=== PATIENT | female | born 1945 | race Caucasian/White ===

== ENCOUNTER 2025-09-11 12:08 | Inpatient (IN) | payer MEDICARE, SELFPAY ==
--- OUTSIDE RECORDS SUMMARY | 2025-02-03 06:00 | XMS_ITS ---
Author Organization [facility] es Address [address] [place] [address] Care Team Providers Care Loss Control Technician Name Role Phone Anjelica Borges Primary Care Provider Douglas Daniels Unavailable [phone] REASON FOR VISIT 1 month f/u Social History Sex Assigned At : Social History Observation Description Sex Assigned At Female Encounters Encounter Location Date Provider Diagnosis [facility] [address] [facility] [place] [place] [address] 2024 Douglas Daniels Plan Of Treatment No Information Progress Notes * GLENN SPANNDOB: (80 yo F)Acc No.[id number]:02/03/2025 Behavioral Health Patient: GLENN MENON :?WINSTON MolinaPDOB:1945???Age:80 Y???Sex: FemaleDate:02/03/2025Phone:[phone]:[address], [place] [id number]:Anjelica Borges Subjective: * Chief Complaints: * 1 month f/u Billing Information: * Procedure Codes: * Electronic signature of DERRICK Molina on 09/12/2025 at 01:53 PM ESTSign off status: Pending * Provider: DERRICK Block Date: 0 02/03/2025 Generated for Printing/Faxing/eTransmitting on:?09/12/2025 01:53 PM EST
--- OUTSIDE RECORDS SUMMARY | 2025-02-09 06:45 | XMS_ITS ---
Author Organization [employer] [facility] [employer] es Address [address] [place] [address] Care Team Providers Care Director Inbound Sales Name Role Phone Anjelica Borges Primary Care Provider [phone] Douglas Daniels Unavailable [phone] REASON FOR VISIT 1 month f/u R/S FROM 02/02 Social History Sex Assigned At : Social History Observation Description Sex Assigned At Female Encounters Encounter Location Date Provider Diagnosis [facility] [address] [place] [address] 2024 Douglas Daniels Plan Of Treatment No Information Progress Notes * GLENN SPANNDOB: (80 yo F)Acc No.[id number]:02/09/2025 Behavioral Health Patient: GLENN MENON :?WINSTON MolinaPDOB:1945???Age:80 Y???Sex: FemaleDate:02/09/2025Phone:[phone]:[address], [id number]:Anjelica Borges Subjective: * Chief Complaints: * 1 month f/u R/S FROM 02/02 * Electronic signature of DERRICK Molina on 09/12/2025 at 01:52 PM ESTSign off status: Pending * Provider: DERRICK Block Date: 0 02/09/2025 Generated for Printing/Faxing/eTransmitting on:?09/12/2025 01:52 PM EST
--- OUTSIDE RECORDS SUMMARY | 2025-02-10 06:30 | XMS_ITS ---
Author Organization [facility] es Address [address] [place] [address] Care Team Providers Care Voting Machine Repairer Name Role Phone Anjelica Borges Primary Care Provider [phone] Douglas Daniels Unavailable [phone] Allergies Allergen (clinical drug ingredient) Drug/Non Drug Allergy documented on EMR Reaction Allergy Type Onset Date Status sulfacetamide Sulfacetamide Unknown Drug Allergy Active REASON FOR VISIT R/S FROM 02/09 Medications Medication SIG (Take, Route, Frequency, Duration) Notes Start Date End Date Status Auvelity 45-105 MG Tablet Ex tended Release 1 tablet Orally twice a day (bid); Duration: 30 days 3ActiveSEROquel 100 MG Tablet1 tablet at bedtime Orally Once a day; Duration: 90 daysActivetraZODone HCl 50 MG Tablet1 tablet at bedtime as needed Orally Once a day; Duration: 90 days4ActivehydrOXYzine HCl 25 MG Tablet 1-2 tablets at night Oral Once a day; Duration: 30 daysmay increase to 2 tablets if needed for improved sleepActiveclonazePAM 0.5 MG Tablet1 tablet Oral twice a day (bid) as needed (prn); Duration: 30 days5ActiveLevothyroxine Sodium 150 MCG Tablet1 tablet in the morning on an empty stomach Orally Once a day ActiveamLODIPine Besylate 5 MG Tablet1 tablet Orally Once a dayActive Spironolactone 25 MG Tablet1 tablet OrallyActiveMetoprolol Succinate 25 MG Capsule ER 24 Hour Sprinkle1 capsule Orally Once a dayActivePantoprazole Sodium 20 MG Tablet Delayed Release1 tablet Orally Once a dayActive Social History Sex Assigned At : Social History Observation Description Sex Assigned At Female Social History Drug/Alcohol:Social InfoQuestionAnswerNotesAUDIT-C (Standard)Did you have a drink containing alcohol in the past year?[id number] Encounters Encounter Location Date Provider Diagnosis [facility] [address] [place] [address] 2024 Douglas Daniels Plan Of Treatment No Information Progress Notes * GLENN SPANN JDOB: 7 (80 yo F)Acc No.[id number]:02/10/2025 Behavioral Health Patient: GLENN MENON :?Douglas Daniels, FNPDOB:1945???Age:80 Y???Sex: FemaleDate:02/10/2025Phone:[phone]:[address], [facility], [id number]:Anjelica Borges Subjective: * Chief Complaints: * R /S FROM 02/09 * Medical History: Agoraphobia Depression Medical History Verified * Surgical History: No Surgical History documented.? Surgical History verified.? * Hospitalization/Major Diagno stic Procedure: [facility] Oct 2019? Hospitalization Verified.? * Family History: F ather: . M other: . 2 brother(s) , 1 sister(s) . . F amily History Verified.. * Social History: ???Drug/Alcohol:?AUDIT-C (Standard)?Did you have a drink containing alcohol in the past year??No ?Points?0 ?Interpretation?Negative ??? * Medications: T akingPantoprazole Sodium 20 MG Tablet Delayed Release 1 tablet Orally Once a day Levothyroxine Sodium 150 MCG Tablet 1 tablet in the morning on an empty stomach Orally Once a day amLODIPine Besylate 5 MG Tablet 1 tablet Orally Once a day Spironolactone 25 MG Tablet 1 tablet Orally Metoprolol Succinate 25 MG Capsule ER 24 Hour Sprinkle 1 capsule Orally Once a day Auvelity 45-105 MG Tablet Extended Release 1 tablet Orally twice a day (bid) SEROquel 100 MG Tablet 1 tablet at bedtime Orally Once a day traZODone HCl 50 MG Tablet 1 tablet at bedtime as needed Orally Once a day hydrOXYzine HCl 25 MG Tablet 1-2 tablets at night Oral Once a day , Notes to Pharmacist: may increase to 2 tablets if needed for improved sleepclonazePAM 0.5 MG Tablet 1 tablet Oral twice a day (bid) as needed (prn) Taking Pantoprazole Sodium 20 MG Tablet Delayed Release 1 tablet Orally Once a day Taking Levothyroxine Sodium 150 MCG Tablet 1 tablet in the morning on an empty stomach Orally Once a day Taking amLODIPine Besylate 5 MG Tablet 1 tablet Orally Once a day Taking Spironolactone 25 MG Tablet 1 tablet Orally Taking Metoprolol Succinate 25 MG Capsule ER 24 Hour Sprinkle 1 capsule Orally Once a day Taking Auvelity 45-105 MG Tablet Extended Release 1 tablet Orally twice a day (bid) Taking SEROquel 100 MG Tablet 1 tablet at bedtime Orally Once a day Taking traZODone HCl 50 MG Tablet 1 tablet at bedtime as needed Orally Once a day Taking hydrOXYzine HCl 25 MG Tablet 1-2 tablets at night Oral Once a day , Notes to Pharmacist: may increase to 2 tablets if needed for improved sleepTaking clonazePAM 0.5 MG Tablet 1 tablet Oral twice a day (bid) as needed (prn) * Allergies: S ulfaolivermidkallieAllergies Verified. Billing Information: * Procedure Codes: * Electronic signature of DERRICK Molina on 09/12/2025 at 01:52 PM ESTSign off status: Pending * Provider: DERRICK Block Date: 0 02/10/2025 Generated for Printing/Faxing/eTransmitting on:?09/12/2025 01:52 PM EST
--- OUTSIDE RECORDS SUMMARY | 2025-03-24 05:15 | XMS_ITS ---
Author Organization [facility] es Address [address] [place] [address] Care Team Providers Care Suit Maker Name Role Phone Anjelica Borges Primary Care Provider Douglas Daniels Unavailable [phone] REASON FOR VISIT BH F/U for med refills Social History Sex Assigned At : Social History Observation Description Sex Assigned At Female Encounters Encounter Location Date Provider Diagnosis [facility] [address] [place] [address] 2024 Douglas Daniels Plan Of Treatment No Information Progress Notes * GLENN SPANNDOB: 7 (80 yo F)Acc No.[id number]:03/24/2025 Behavioral Health Patient: GLENN MENON :?WINSTON MolinaPDOB:1945???Age:80 Y???Sex: FemaleDate:03/24/2025Phone:[phone]:[address] [facility]-[id number]:Anjelica Borges Subjective: * Chief Complaints: * B H F/U for med refills Billing Information: * Procedure Codes: * Electronic signature of DERRICK Molina on 09/12/2025 at 01:52 PM ESTSign off status: Pending * Provider: DERRICK Block Date: 0 03/24/2025 Generated for Printing/Faxing/eTransmitting on:?09/12/2025 01:52 PM EST
--- OUTSIDE RECORDS SUMMARY | 2025-04-21 03:30 | XMS_ITS ---
Author Organization [facility] Address [address] [place] [address] Care Team Providers Care Water Service Dispatcher Name Role Phone Anjelica Borges Primary Care Provider REASON FOR VISIT rachana from [facility] Social History Sex Assigned At : Social History Observation Description Sex Assigned At Female Encounters Encounter Location Date Provider Diagnosis [facility] [address] [address] 04/21/2025 Anjelica Borges Plan Of Treatment No Information Progress Notes * GLENN SPANNDOB: (80 yo F)Acc No.[id number]:04/21/2025 Behavioral Health Patient: Melany MOSS GLENN Silverman :?Anjelica Borges CNPDOB:1945???Age:80 Y ???Sex:FemaleDate:04/21/2025Phone:[phone]:[address], [place], [id number] Subjective: * Chief Complaints: * t oc from [facility] Billing Information: * Procedure Codes: * Electronic signature of CALIN Grissom on 09/12/2025 at 01:52 PM ESTSign off status: Pending * Provider: Lasha Borges CNP Date: 0 04/21/2025 Generated for Printing/Faxing/eTransmitting on:?09/12/2025 01:52 PM EST
--- OUTSIDE RECORDS SUMMARY | 2025-05-04 08:15 | XMS_ITS ---
Author Organization [employer] [facility] Address [address] [place] [address] Care Team Providers Care Chemical Checker Name Role Phone Anjelica oBrges Primary Care Provider REASON FOR VISIT rachana from [facility] Social History Sex Assigned At : Social History Observation Description Sex Assigned At Female Encounters Encounter Location Date Provider Diagnosis [facility] [address] [place] [address] 05/04/2025 Anjelica Borges Plan Of Treatment No Information Progress Notes * GLENN SPANNDOB: (80 yo F)Acc No.[id number]:05/04/2025 Behavioral Health Patient: Melany MOSS GLENN Silverman :?Anjelica Borges CNPDOB:1945???Age:80 Y ???Sex:FemaleDate:05/04/2025Phone:[phone]:[address], [address], [place], [id number] Subjective: * Chief Complaints: * T oc from [facility] Billing Information: * Procedure Codes: * Electronic signature of CALIN Grissom on 09/12/2025 at 01:53 PM ESTSign off status: Pending * Provider: Lasha Borges CNP Date: 0 05/04/2025 Generated for Printing/Faxing/eTransmitting on:?09/12/2025 01:53 PM EST
--- OUTSIDE RECORDS SUMMARY | 2025-05-19 09:00 | XMS_ITS ---
Author Organization [employer] [facility] es Address [address] [place] [address] Care Team Providers Care Dairy Science Teacher Name Role Phone Anjelica Borges Primary Care Provider REASON FOR VISIT rachana Kip Social History Sex Assigned At : Social History Observation Description Sex Assigned At Female Encounters Encounter Location Date Provider Diagnosis [facility] [address] [place] [address] 05/19/2025 Anjelica Borges Plan Of Treatment No Information Progress Notes * GLENN SPANNDOB: (80 yo F)Acc No.[id number]:05/19/2025 Behavioral Health Patient: Melany MOSS GLENN Silverman :?Anjelica Borges CNPDOB:1945???Age:80 Y ???Sex:FemaleDate:05/19/2025Phone:[phone]:[address], [address], [place], [place] Subjective: * Chief Complaints: * t oc Kip Billing Information: * Procedure Codes: * Electronic signature of CALIN Grissom on 09/12/2025 at 01:53 PM ESTSign off status: Pending * Provider: Lasha Borges CNP Date: 0 05/19/2025 Generated for Printing/Faxing/eTransmitting on:?09/12/2025 01:53 PM EST
[2025-09-11 12:09] VITALS: BP 145/83; PULSE 80; TEMP 36.9; O2SAT 98; BMI 22.5
--- NOTE | 2025-09-11 12:33 | ECG_ITS ---
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 Measurements Intervals [place] Rate: 72 P: 72 KS: 168 QRS: 43 QRSD: 128 T: 16 QT: 426 QTc: 451 Interpretive Statements 1100 Sinus rhythm 2420 RSR (QR) in lead V1/V2, consistent with right ventricular conduction delay 3434 Septal myocardial infarction, age undetermined 9150 abnormal ECG No previous ECG available for comparison Electronically Signed On 09-11-2025 17:24:22 EST by BIRD BUTLER M.D.
--- NOTE | 2025-09-11 12:39 | ED.GENADUL1 ---
HPI HPI - General Adult General Chief complaint: Abdominal Pain Stated complaint: NAUSEA VOMITING Time Seen by Provider: 09/11/25 12:27 Source: patient Mode of arrival: ambulance Limitations: no limitations History of Present Illness HPI narrative: 80-year-old female presents for nausea and vomiting. She comes in from [facility] and has a history of stage IV gastric carcinoma. She is in hospice and has DNR CCA status. [facility] was unable to control her vomiting and they sent her here. No fever or hematemesis. Related Data Home Medications ?Medication ?Instructions ?Recorded ?Confirmed acetaminophen 325 mg capsule 650 mg PO Q6H PRN pain 09/11/25 09/11/25 diazepam 5 mg tablet 5 mg PO Q6H PRN anxiety 09/11/25 09/11/25 fentanyl 75 mcg/hr transdermal 1 patch transdermal Q72H 09/11/25 09/11/25 patch folic acid 1 mg tablet 1 mg PO DAILY 09/11/25 09/11/25 hyoscyamine sulfate 0.125 mg 0.125 mg PO TID 09/11/25 09/11/25 tablet (Levsin) levothyroxine 150 mcg tablet 150 mcg PO DAILY 09/11/25 09/11/25 (Euthyrox) lidocaine 4 % topical patch 1 patch topical DAILY PRN pain 09/11/25 09/11/25 morphine 100 mg/5 mL oral 30 mg PO .q3hr PRN pain 09/11/25 09/11/25 concentrate ondansetron 4 mg disintegrating 4 mg PO TID 09/11/25 09/11/25 tablet pantoprazole 40 mg tablet,delayed 40 mg PO BID 09/11/25 09/11/25 release polyethylene glycol 3350 17 17 g PO DAILY 09/11/25 09/11/25 gram/dose oral powder (ClearLax) promethazine 12.5 mg tablet 12.5 mg PO Q8H PRN nausea and 09/11/25 09/11/25 vomiting scopolamine base 1 mg over 3 days 1 patch transdermal Q3D PRN nausea 09/11/25 09/11/25 transdermal patch (Transderm-Scop) and vomiting sucralfate 1 gram tablet (Carafate) 1 g PO BID 09/11/25 09/11/25 trazodone 50 mg tablet 50 mg PO BEDTIME 09/11/25 09/11/25 Allergies Allergy/AdvReac Type Severity Reaction Status Date / Time aspirin Allergy Unknown Unknown Verified 09/11/25 12:14 diflunisal (From Dolobid) Allergy Unknown unknown Verified 09/11/25 12:14 Penicillins Allergy Unknown Unknown Verified 09/11/25 12:14 sulfamethizole Allergy Unknown Unknown Verified 09/11/25 12:14 Review of Systems ROS Narrative A ten point review of systems is negative except as noted above. PFSH PFSH Social History Little interest or pleasure in doing things: not at all Feeling down, depressed, or hopeless: not at all Exam Narrative Exam Narrative: Nurses note and vital signs reviewed General:The patient appears thin and in no distress. She is laying on her side when I walk into the room Skin:Warm, dry, no pallor noted.There is no rash noted. Head:Normocephalic, atraumatic Eye: Normal conjunctiva, no drainage Ears, Nose, Mouth, and Throat: oral mucosa is mildly dry. Nares patent. Cardiovascular:Regular Rate and Rhythm Respiratory:Patient is in no distress, no accessory muscle use, lungs are clear to auscultation, no wheezing, rales or rhonchi Back:non-tender GI: Soft and nondistended Musculoskeletal: The patient has no evidence of calf tenderness, no pitting edema, symmetrical pulses noted bilaterally Neurological: Awake and alert Psychiatric:Cooperative Constitutional Vital Signs, click to edit/add: Last Vital Signs Temp 98.4 F 09/11/25 12:09 Pulse 80 09/11/25 12:09 Resp 18 09/11/25 12:09 BP 145/83 H 09/11/25 12:09 Pulse Ox 98 09/11/25 12:09 O2 Del Method Room Air 09/11/25 13:59 Course Vital Signs Vital signs: Vital Signs Temperature 98.4 F 09/11/25 12:09 Pulse Rate 80 09/11/25 12:09 Respiratory Rate 18 09/11/25 12:09 Blood Pressure 145/83 H 09/11/25 12:09 Pulse Oximetry 98 09/11/25 12:09 Oxygen Delivery Method Room Air 09/11/25 12:09 Temperature 98.4 F 09/11/25 12:09 Pulse Rate 80 09/11/25 12:09 Respiratory Rate 18 09/11/25 12:09 Blood Pressure 145/83 H 09/11/25 12:09 Pulse Oximetry 98 09/11/25 12:09 Oxygen Delivery Method Room Air 09/11/25 13:59 Medical Decision Making MDM Narrative Medical decision making narrative: Blood work is nonspecific. We have given her several doses of nausea medication including Zofran, Phenergan, and Reglan. She continues to be nauseous and is not willing to drink much. She does not have any abdominal tenderness or abdominal pain. She has DNRCC status and will be admitted for observation. Findings are discussed with the patient. Differential Diagnosis Differential Diagnosis: Vomiting, dehydration Lab Data Lab results reviewed: Yes I reviewed the patient's lab results Labs: Lab Results 09/11/25 09/11/25 Range/Units 12:23 17:16 WBC 13.6 H (4.0-11.0) 10^3/uL RBC 5.00 (4.20-5.40) 10^6/uL Hgb 12.2 (12.0-16.0) g/dL Hct 38.0 (36.0-48.0) % MCV 76.0 L (81.0-99.0) fL MCH 24.4 L (26.7-34.0) pg MCHC 32.1 (29.9-35.2) g/dL RDW 15.8 H (11.0-15.0) % Plt Count 345 (150-450) 10^3/uL MPV 10.7 (9.5-13.5) fL Neut % (Auto) 88.4 H (43.0-75.0) % Lymph % (Auto) 7.1 L (20.5-60.0) % [place] % (Auto) 3.7 (1.7-12.0) % Eos % (Auto) 0.0 L (0.9-7.0) % Baso % (Auto) 0.2 (0.2-2.0) % Neut # (Auto) 12.0 H (1.4-6.5) 10^3/uL Lymph # (Auto) 1.0 L (1.2-3.8) 10^3/uL [place] # (Auto) 0.5 (0.3-0.8) 10^3/uL Eos # (Auto) 0.0 (0.0-0.7) 10^3/uL Baso # (Auto) 0.0 (0.0-0.1) 10^3/uL Abs Immat Gran (auto) 0.08 H (0.00-0.03) 10^3/uL Imm/Tot Granulo (auto) 0.6 H (0.0-0.5) % Sodium 138 (136-145) mmol/L Potassium 3.1 L (3.5-5.1) mmol/L Chloride 96 L (98-107) mmol/L Carbon Dioxide 30.2 (21.0-32.0) mmol/L Anion Gap 14.9 BUN 20.0 H (7.0-18.0) mg/dL Creatinine 0.78 (0.55-1.02) mg/dL Est GFR ( Amer) >60 (>=60 mL/min/1.73m^2) Est GFR (Non-Af Amer) >60 (>=60 mL/min/1.73m^2) BUN/Creatinine Ratio 25.6 Glucose 140 H (74-106) mg/dL Calcium 10.1 (8.5-10.1) mg/dL Urine Color Yellow (YELLOW) Urine Clarity Sl cloudy (CLEAR) Urine pH 6.0 (5.0-9.0) Ur Specific [place] >=1.030 A (1.005-1.025) Urine Protein 100 A (NEG/TRACE) mg/dL Urine Glucose (UA) Negative (NEGATIVE) mg/dL Urine Ketones 40 A (NEGATIVE) mg/dL Urine Occult Blood Negative (NEGATIVE) Urine Nitrite Positive A (NEGATIVE) Urine Bilirubin Small A (NEGATIVE) Urine Urobilinogen 1.0 (0.2-1.0) EU/dL Ur Leukocyte Esterase Negative (NEGATIVE) Urine RBC 0-2 (0-2) #/HPF Urine WBC 2-5 A (NONE SEEN) #/HPF Ur Squamous Epith Cells Rare (NONE/RARE) #/LPF Urine Crystals None seen (None Seen) #/HPF Urine Bacteria Large A (NONE SEEN) #/HPF Urine Casts Seen A (NONE SEEN) #/LPF Urine Mucus Small A (NONE SEEN) Ur Culture Indicated? Yes-[facility] ECG Data Attestation: I personally reviewed and interpreted this ECG as follows: (EKG on my interpretation shows sinus rhythm with rate of 72 and no acute change) Discharge Plan Discharge Chief Complaint: Abdominal Pain Clinical Impression: Nausea & vomiting Patient Disposition: Admitted as Observation Time of Disposition Decision: 18:04 Condition: Fair
[2025-09-11] MEDS: 0.9 % SODIUM CHLORIDE 1,000 ML 1000 ML IV (12:47)
[2025-09-11 12:52] LABS: Hematocrit 38.0 % (36.0-48.0); Hemoglobin 12.2 g/dL (12.0-16.0); Immature Granulocytes Abs Auto 0.08 10^3/uL (0.00-0.03); Immature Granulocytes Pct Auto 0.6 % (0.0-0.5); Lymphocytes Absolute Auto 1.0 10^3/uL (1.2-3.8); Mean Corpuscular HGB Conc 32.1 g/dL (29.9-35.2); Mean Corpuscular Hemoglobin 24.4 pg (26.7-34.0); Mean Corpuscular Volume 76.0 fL (81.0-99.0); Platelet Count 345 10^3/uL (150-450); Red Blood Count 5.00 10^6/uL (4.20-5.40); White Blood Count 13.6 10^3/uL (4.0-11.0)
[2025-09-11 12:55] LABS: Anion Gap 14.9; Blood Urea Nitrogen 20.0 mg/dL (7.0-18.0); Calcium 10.1 mg/dL (8.5-10.1); Carbon Dioxide 30.2 mmol/L (21.0-32.0); Chloride 96 mmol/L (98-107); Estimated GFR (African America >60 (>=60 mL/min/1.73m^2); Estimated GFR (Non-African Ame >60 (>=60 mL/min/1.73m^2); Glucose 140 mg/dL (74-106); Potassium 3.1 mmol/L (3.5-5.1); Sodium 138 mmol/L (136-145)
[2025-09-11] MEDS: METOCLOPRAMIDE HCL 10 MG/2 ML VIAL IVP (13:52)
[2025-09-11] MEDS: MORPHINE SULFATE 4 MG/ML VIAL IV (13:52)
[2025-09-11 14:19] VITALS: PULSE 72
[2025-09-11] MEDS: 0.9 % SODIUM CHLORIDE 500 ML IV (15:08)
[2025-09-11] MEDS: PROMETHAZINE HCL 12.5 MG in 0.9 % SODIUM CHLORIDE 50 ML 202 MG IV (15:09)
[2025-09-11 17:37] LABS: Glucose Urine UA NEGATIVE (NEGATIVE)
[2025-09-11 17:47] LABS: Crystals Seen? None Seen #/HPF (None Seen)
[2025-09-11 17:48] LABS: Cast Seen? SEEN #/LPF (NONE SEEN); Urine Culture Indicated YES-FRMC
--- NOTE | 2025-09-11 18:15 | CT_ITS ---
The [address] [address] Patient Name: GLENN SPANN MRN: [id number] date: 1945 Sex: F Assigned Patient Location: ER Current Patient Location: .MAIN Accession/Order Number: [id number] Exam Date: 09/11/2025 18:30 Report Date: 09/11/2025 19:01 At the request of: CAROLINE EVANS MD Procedure: CT abdomen pelvis wo con CT ABDOMEN AND PELVIS WITHOUT INTRAVENOUS CONTRAST: CLINICAL HISTORY: Vomiting, stage IV colon cancer COMPARISON: None TECHNIQUE: Spiral images were obtained through the abdomen and pelvis without intravenous contrast. This CT exam was performed using one or more following dose reduction techniques: Automated exposure control, adjustment of the mA and/or kV according to patient size, or use of iterative reconstruction technique. FINDINGS: Chronic satellite Lung Bases: [Motion through the lung bases. Lung bases nodularity up to 7 mm in size on the right 5 millimeters of the left.] Organs:Multifocal liver lesions suggestive of metastatic disease.[. Spleen, right adrenal kidneys unremarkable. Left adrenal nodularity identified may raise possibility for adrenal metastases. Diffusely heterogeneous appearance of pancreas unclear if this is due to Adjacent nodularity, correlate with pancreatic enzymes and history. GI: Mild thickening gastric antrum noted could relate to gastroenteritis versus focal ulceration. Evidence of a loculated collection posterior to the stomach noted otherwise no bowel obstruction. Multiple of the left pericolic gutter fluid.[ Pelvis:[Bladder mildly distended. No definite adnexal mass. Uterus appears absent.] Peritoneum/Retroperitoneum:Free fluid noted dependently. Multifocal areas of mesenteric nodularity and possible areas of omental caking noted may raise possibility for underlying carcinomatosis. Findings appear greatest along the gastrohepatic ligament and at the level of pancreas. Possible area of peritoneal implants identified within the pelvis the right.[ Abd wall/Bones:Multilevel facet arthropathy involving the lumbar spine line. No definite osseous or lytic or osteoblastic metastasis identified.[ CT/CT abdomen pelvis wo con IMPRESSION: Multifocal omental nodularity and suspected omental caking and multifocal liver lesions suggestive of metastatic disease. Findings are greatest within the upper abdomen along the gastrohepatic ligament and the pancreas. Perisplenic fluid and fluid collection along the posterior wall of the stomach. Correlate with pancreatic enzymes recommended. Otherwise no definite acute inflammatory process or bowel obstruction. Impression dictated by: Niko Fine M.D. 09/11/2025 7:01 PM Dictation Location: [place] [address] Electronically authenticated by: [id number] Y Date: 09/11/2025 19:01
--- NOTE | 2025-09-11 18:17 | PM.IMHP1 ---
Internal Medicine - H&P: HPI History of Present Illness Chief complaint: NAUSEA VOMITING Narrative: This is a 80 y.o female with past medical Hx of recently diagnosed Stage IV gastric cancer (diagnosed on May 2025 not on chemo or radiation therapy, currently on hospice, was sent from SNF (while on hospice) due to intractable abdominal pain, left sided sided, crampy in nature, comes and goes, 10/10, a/w severe nausea and vomiting, worsened over the last 3-4 days could not keep anything down, including her oral liquid morphine. History was obtained from the patient, ED staff, chart review and her daughter Kathleen over the phone. In the ED, patient continued to be nauseous and was dry heaving as well and cannot keep anything down so the decision was made to admit her under hospitalist service for now. Her vitals were stable in the ED, CBC did not show leukocytosis with normal hemoglobin and platelet count. Her chemistry did show potassium of 3.1 otherwise unremarkable renal function. She was dry in exam Review of Systems ROS Status of ROS 10 or more systems reviewed and unremarkable except as noted in history and below PFSH PFSH Social History Little interest or pleasure in doing things: not at all Feeling down, depressed, or hopeless: not at all Meds Home Medications and Allergies Home Medications ?Medication ?Instructions ?Recorded ?Confirmed ?Type acetaminophen 325 mg capsule 650 mg PO Q6H PRN pain 09/11/25 09/11/25 History diazepam 5 mg tablet 5 mg PO Q6H PRN anxiety 09/11/25 09/11/25 History fentanyl 75 mcg/hr transdermal 1 patch transdermal Q72H 09/11/25 09/11/25 History patch folic acid 1 mg tablet 1 mg PO DAILY 09/11/25 09/11/25 History hyoscyamine sulfate 0.125 mg 0.125 mg PO TID 09/11/25 09/11/25 History tablet (Levsin) levothyroxine 150 mcg tablet 150 mcg PO DAILY 09/11/25 09/11/25 History (Euthyrox) lidocaine 4 % topical patch 1 patch topical DAILY PRN pain 09/11/25 09/11/25 History morphine 100 mg/5 mL oral 30 mg PO .q3hr PRN pain 09/11/25 09/11/25 History concentrate ondansetron 4 mg disintegrating 4 mg PO TID 09/11/25 09/11/25 History tablet pantoprazole 40 mg tablet,delayed 40 mg PO BID 09/11/25 09/11/25 History release polyethylene glycol 3350 17 17 g PO DAILY 09/11/25 09/11/25 History gram/dose oral powder (ClearLax) promethazine 12.5 mg tablet 12.5 mg PO Q8H PRN nausea and 09/11/25 09/11/25 History vomiting scopolamine base 1 mg over 3 days 1 patch transdermal Q3D PRN nausea 09/11/25 09/11/25 History transdermal patch (Transderm-Scop) and vomiting sucralfate 1 gram tablet (Carafate) 1 g PO BID 09/11/25 09/11/25 History trazodone 50 mg tablet 50 mg PO BEDTIME 09/11/25 09/11/25 History Allergies Allergy/AdvReac Type Severity Reaction Status Date / Time aspirin Allergy Unknown Unknown Verified 09/11/25 12:14 diflunisal (From Dolobid) Allergy Unknown unknown Verified 09/11/25 12:14 Penicillins Allergy Unknown Unknown Verified 09/11/25 12:14 sulfamethizole Allergy Unknown Unknown Verified 09/11/25 12:14 Exam Narrative Exam Narrative: General: Frail and fragile, malnourished, with dry mucous membrane dehydrated. Severely ill but not in acute distress pleasant patient she is in pain and nauseous on my exam. Skin:Warm, dry, and pallor was noted Head:Normocephalic, atraumatic, temporal wasting was noted on exam Eye: Normal conjunctiva, no drainage Ears, Nose, Mouth, and Throat: oral mucosa is mildly dry. Nares patent. Cardiovascular:Regular Rate and Rhythm Respiratory:Patient is in no distress, no accessory muscle use, lungs are clear to auscultation, no wheezing, rales or rhonchi Back:non-tender GI: Tenderness to the left upper quadrant, no signs of acute abdomen, normoactive bowel sounds. Musculoskeletal: The patient has no evidence of calf tenderness, no pitting edema, symmetrical pulses noted bilaterally Neurological: Awake and alert, following commands, no focal deficits Constitutional Vital Signs, click to edit/add: Last Vital Signs Temp 98.4 F 09/11/25 12:09 Pulse 80 09/11/25 12:09 Resp 18 09/11/25 12:09 BP 145/83 H 12/12/25 12:09 Pulse Ox 98 09/11/25 12:09 O2 Del Method Room Air 09/11/25 13:59 Internal Medicine - H&P: Reslt Labs Labs: Short CBC 09/11/25 Range/Units 12:23 WBC 13.6 H (4.0-11.0) 10^3/uL Hgb 12.2 (12.0-16.0) g/dL Hct 38.0 (36.0-48.0) % Plt Count 345 (150-450) 10^3/uL BMP 09/11/25 12:23 Sodium 138 Potassium 3.1 L Chloride 96 L Carbon Dioxide 30.2 BUN 20.0 H Creatinine 0.78 Glucose 140 H Calcium 10.1 Urine 09/11/25 Range/Units 17:16 Urine Color Yellow (YELLOW) Urine Clarity Sl cloudy (CLEAR) Urine pH 6.0 (5.0-9.0) Ur Specific [place] >=1.030 A (1.005-1.025) Urine Protein 100 A (NEG/TRACE) mg/dL Urine Glucose (UA) Negative (NEGATIVE) mg/dL Assessment and Plan Assessment and Plan (1) Nausea & vomiting: (2) Gastric malignant neoplasm: (3) Dehydration: Plan Intractable nausea and vomiting with abdominal pain likely the setting of stage IV gastric cancer Dehydration with decreased p.o. intake given the severe intractable nausea and vomiting Frailty and debility Hypokalemia in the setting of decreased p.o. intake - Admit patient to medical floor telemetry - Start LR 125 mg IV for total of at least 1 L for tonight - Start IV morphine 2 mg every 3 hours as needed - Start IV Zofran 2 mg every 4 hours as needed for nausea and vomiting - Treat intractable nausea and vomiting to Zofran with IV Compazine and IV Phenergan - Continuing fentanyl and scopolamine patches - Continue with IV fentanyl 40 mg daily for GI prophylaxis - Given her decreased p.o. intake, I started her on IV levothyroxine 125 mcg every 24-hour instead of her p.o. levothyroxine - I discussed the plan with the patient and her daughter, they are both in agreement with the plan - She is DNR CCA without intubation
[2025-09-11 19:19] LABS: Alanine Aminotransferase 11 U/L (14-59); Albumin Globulin Ratio 0.8; Albumin Level 3.3 g/dL (3.4-5.0); Alkaline Phosphatase 165 U/L (46-116); Amylase 36 U/L (25-115); Aspartate Amino Transferase 32 U/L (15-37); Globulin 4.0 g/dL; Lipase 56.0 U/L (16.0-77.0); Total Protein 7.3 g/dL (6.4-8.2)
--- OUTSIDE RECORDS SUMMARY | 2025-09-11 19:29 | XMS_ITS | Continuity of Care Document ---
Author Organization [facility] Address [address] [place] [address] Phone Care Team Providers Care Precision Machine Operator Name Role Phone Enoch Cordova DO Attending Provider Care Teams Patient Care Team Team Status: Active Member Role/Relationship Status Dates Enzo Squires DO Primary Care Provider Active Patient Care Team Team Status: Inactive Member Role/Relationship Status Dates Enoch Cordova DO Attending Provider Active S tart: September 11, 2025 End: September 11, 2025 Allergies, Adverse Reactions, Alerts Allergen Type Severity Reaction Last Updated Verified Status Comments Sulfa (Sulfonamide Antibiotics) Allergy Unknown Unknown Reaction September 13, 2019 3:26am Yes Active Pt states that she does not know the reaction because it was in childhood aspirin Allergy Unknown Unknown Reaction October 14, 2019 3:02am Yes Active diflunisalAllergyUnknownUnknown ReactionJan2019 3:02amYesActive Social History Smoking Status Status Start Date End Date Date of Observa tion Smokes tobacco daily (finding) October 14, 2019 3:47pm Observation Status Observation Response Date of Response Legal Sex Female (finding) Sex Assigned At BirthFemaleApril 1944 Family History Relationship Condition Age at Onset Recorded Date/T efrain father Heart disease Unknown LeukemiaUnknown Problems Active Problems Problem Diagnosis/Recorded Date Onset Date Stat us Depressed affect September 14, 2019 8:39am Unknown Active Major depressive disorder September 13, 2019 12:28pm Unknown Active Major depressive disorder October 14, 2019 12:48pm U nknown Active Alcohol use September 13, 2019 4:30am Unknown A ctive Major neurocognitive disorder October 23, 2019 12:46 pm Unknown Active Hyponatremia September 13, 2019 4:30am Unknown A ctive Hypothyroidism September 13, 2019 4:30am Unknown Active Chronic systolic heart failure September 13, 2019 4:3 0am Unknown Active 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 October 25, 2019 9:38am Unknown Active Tachycardia September 13, 2019 4:30am Unknown A ctive Apical mural thrombus September 13, 2019 4:31am Unkno wn Active Major depressive disorder, r ecurrent episode October 14, 2019 12:48pm Unknown Active HTN (hypertension) September 14, 2019 8:38am Unknown Active Vitamin D deficiency October 14, 2019 3:45pm Unknown Active Hypokalemia October 14, 2019 3:45pm Unknown Ac tive Hyperkalemia September 13, 2019 4:30am Unknown A ctive Medications Medication Status Dose Units Route Directions Qty Days Refills S tart Date Stop Date End Date Reason(s) Instructions Adherence Lorazepam 1 mg tablet Discontinued 1 MG PO Every 8 hours as needed for Anxiety September 13, 2019 12:2018 8:37amLevothyroxine 200 mcg kygjgjKwktzubeniuu740DYFHAEukmkRmwsnndq 14th, 2019 12:2018 8:37amSpironolactone 25 mg uyigxaPmaacbfhebhq71YGEVMmuriXsucbvri 14th, 2019 12:00mb2018 8:37amLisinopril 10 mg rafhvkVcuywcqeeuos92JZFPNrpdz September 13, 2019 12:mb2018 8:37amGabapentin 800 mg tablet Wpbugnttmnyd076IWIXLmfbr times dailySeptember 13, 2019 12:00amJanuary 2019 10:53amVenlafaxine 100 mg pvwdckWjdcxbgsqnzg291FOSANytbk dailySeptember 13, 2019 12:00Decemb2018 10:53amApixaban (Eliquis) 5 mg tablet Jxhkheqdxbij3XUTC5-9 TIMES DAILYasc[facility]2018 12:cemb2018 8:37amAmlodipine 5 mg LxnsuhMzmhue7TJNNDcqie461Hruogpmw 2018 12:00am UnknownMetoprolol Succinate (Toprol Xl) 25 mg tablet extended release 24 hr Mdkrchopqmja23EXLYCtnnp655Honwibfd 15th, 2019 12:00amJanuary 2019 3:54am Levothyroxine (Synthroid) 150 mcg snsbucBbczdyqlrabw754HYZMBKfgfn990Syvdvpxz 15th, 2019 12:00January 2019 3:54amLorazepam 1 mg jximqwYxezwijnmrat4PP POEvery 8 hours as needed for Ryixvuo1003Nnluoace2018 8:36amSeptember 19, 2019 10:53amAnxiety disorder, unspecifiedThat is preadmission home medication. Please refer to prescribers instructionApixaban 5 mg tablet Kvxmxdbkrnpq7KTIREavvb kwidh23OvjnlxxuSeptember 14, 2019 8:36amOctuary 2019 3:52amBuspirone 30 mg elqohkPbtbivvnrrca87SMYXThduh dailyOctober 14, 2019 12:00uary 2019 10:53amLevothyroxine 150 mcg wpnivsQhszyuurdxtd167JJC PODailyOctuary 2019 12:00uary 2019 10:53amLevothyroxine 200 mcg tabletDiscontinuedOctuary 2019 12:00amOctober 23, 2019 8:42am Spironolactone 25 mg cbccumPkkjxlomuifw76XGARApvagGsbjxuj 2019 12:00am October 30, 2019 10:53amVenlafaxine 75 mg Capsule,Extended Release 24hrActive 876KNCSWsquf79052Skuwwsg 2019 12:00amUnknownNicotine 14 mg/24 hr Patch 24 DuocWgtuxo4WRJWEOVEVODNTTWiltb878Rauankb 2019 12:00amUnknownGabapentin 800 mg XtepaiMzdwvp958VXGYGkrzg times ltfht19230QknpcgoOctober 30, 2019 12:00amUnknown Buspirone 30 mg baejyaJmhpus95NVMGWbfoz yyrqa99390Oyvupzx 2019 12:00am UnknownLevothyroxine 125 mcg PbybajJsrjxq822JJIDSCWQDG@285395801Oprbvwj 30th, 2020 12:00amUnknownMirtazapine 7.5 mg TabletActive7.5MGPODaily at mpimzgh14388 October 30, 2019 12:00amUnknownNicotine 21 mg/24 hr Patch 24 HourDiscontinued1 YYGNPETGFOLNRSVdwfi056Iwklrkdg 20th, 2019 12:2019 10:53am Buspirone 15 mg mzjakbYvkdrwrrivsu48YDGBWerfx times ytyzy57296Tkblgzre 20th, 2019 12:2019 4:07amVenlafaxine (Effexor Xr) 150 mg capsule,extended release 06uqScoqfisxmlfg820TNGIUemrs480Ohcgqlrl 20th, 2019 12:002019 10:53amAmlodipine 5 mg KbxgjbUunptsxeihmi1YETVPqgiy86 300De2018 12:002019 3:52amGabapentin 800 mg Tablet Wzgcqluelmbd825OMZVFrvma times rflcs52882DgubcmokSeptember 19, 2019 12:002019 3:53amLevothyroxine (Synthroid) 150 mcg BoalyyKfbhnjckvlok560XJOGE DAILY@824750204Szxnbfdo 2018 12:2019 3:54amMetoprolol Succinate 25 mg Tablet Extended Release 24 JrXchdfh80WZBOOmbco69303Lmhyacea 20th, 2019 12:00amUnknownApixaban (Eliquis) 5 mg HcjzgdVnfhtx3ZOPYAkobm daily60 3002018 12:00amUnknown Procedures Procedure Date Performed Status Urine Culture September 11, 2025 active Advance Directives Advance Directive Response Recorded Date/ Time Advance Directives No August 2:18am Insurance Providers Guarantor Rosalee Tirado Address [address] [facility] [address]Buyjxjo Info.Home Phone: Payer Group Member ID Coverage Type Subscriber Relationship to Subscriber Effective Date Expiration Date Medicare [id number] Miller Id: [id number] [address] [facility] [address] [facility] [id number] Miller Id: [id number] [address] [facility] [address] Home Phone: self Encounters Encounter Location(s) Arrival/Admit Date Discharge/Departure Date Discharge/Departure Disposition Provider(s) Departed Referred -[facility] September 11, 2025 5:16pm September 11, 2025 5:17pm Discharged to home care or self care (routine discharge) Guy Rdz DO Plan of Treatment Future Tests Future scheduled test information is unavailable Pending Tests Test Name Ordered Date Scheduled Date Urine Culture September 11, 2025 5:16pm Future Visits Future appointment information is unavailable Future Procedures Procedure Name Ordered Date Scheduled Date Urine Culture September 11, 2025 8:18pm Decem 2024 5:16pm Future Medications Future medication information is unavailable Patient Instructions Patient instructions are unavailable
[2025-09-11 21:07] VITALS: BP 147/63; PULSE 77; TEMP 36.8; O2SAT 98; BMI 18.0
[2025-09-11] MEDS: 0.9 % SODIUM CHLORIDE 10 ML VIAL 5 ML IV (21:29)
[2025-09-11] MEDS: POTASSIUM CHLORIDE 40 MEQ in 0.9 % SODIUM CHLORIDE 250 ML 67.5 MEQ IV (21:36)
[2025-09-11] MEDS: HYOSCYAMINE SULFATE 0.125 MG TAB.SUBL PO (21:44)
[2025-09-11] MEDS: SUCRALFATE 1 GM TABLET PO (21:47)
[2025-09-11 22:38] VITALS: PULSE 77
[2025-09-11 23:42] VITALS: PULSE 82; TEMP 37.1; O2SAT 96
[2025-09-11 23:45] VITALS: BP 165/77
[2025-09-12] VITALS (22 sets, daily range): BP systolic 144–168; BP diastolic 79–90; PULSE 78–117; TEMP 36.3–36.9; O2SAT 96–98
[2025-09-12] MEDS: MORPHINE SULFATE 2 MG/ML SYRINGE IV ×3 (00:37→07:47)
[2025-09-12] MEDS: PROCHLORPERAZINE 10 MG/2 ML VIAL 5 MG IV ×3 (02:30→21:40)
[2025-09-12] MEDS: PROMETHAZINE HCL 12.5 MG in 0.9 % SODIUM CHLORIDE 50 ML 202 MG IV ×2 (04:18→13:21)
[2025-09-12] MEDS: HYOSCYAMINE SULFATE 0.125 MG TAB.SUBL PO ×3 (06:05→21:40)
[2025-09-12 06:42] LABS: Hematocrit 33.7 % (36.0-48.0); Hemoglobin 10.8 g/dL (12.0-16.0); Immature Granulocytes Abs Auto 0.06 10^3/uL (0.00-0.03); Immature Granulocytes Pct Auto 0.5 % (0.0-0.5); Lymphocytes Absolute Auto 0.9 10^3/uL (1.2-3.8); Mean Corpuscular HGB Conc 32.0 g/dL (29.9-35.2); Mean Corpuscular Hemoglobin 24.4 pg (26.7-34.0); Mean Corpuscular Volume 76.1 fL (81.0-99.0); Platelet Count 251 10^3/uL (150-450); Red Blood Count 4.43 10^6/uL (4.20-5.40); White Blood Count 12.6 10^3/uL (4.0-11.0)
[2025-09-12 07:02] LABS: Alanine Aminotransferase 10 U/L (14-59); Albumin Globulin Ratio 0.8; Albumin Level 3.0 g/dL (3.4-5.0); Alkaline Phosphatase 165 U/L (46-116); Anion Gap 17.1; Aspartate Amino Transferase 39 U/L (15-37); Blood Urea Nitrogen 11.0 mg/dL (7.0-18.0); Calcium 8.7 mg/dL (8.5-10.1); Carbon Dioxide 27.6 mmol/L (21.0-32.0); Chloride 98 mmol/L (98-107); Estimated GFR (African America >60 (>=60 mL/min/1.73m^2); Estimated GFR (Non-African Ame >60 (>=60 mL/min/1.73m^2); Globulin 3.8 g/dL; Glucose 115 mg/dL (74-106); Magnesium 1.8 mg/dL (1.8-2.4); Sodium 140 mmol/L (136-145); Total Protein 6.8 g/dL (6.4-8.2)
[2025-09-12 07:11] LABS: Potassium 2.7 mmol/L (3.5-5.1)
[2025-09-12] MEDS: SCOPOLAMINE 1 MG/3 DAYS TRANSDERM PATCH 1 PATCH TD (07:47)
[2025-09-12] MEDS: DIAZEPAM 5 MG TABLET PO ×2 (07:50→15:02)
[2025-09-12] MEDS: PANTOPRAZOLE SODIUM 40 MG VIAL IV (08:38)
[2025-09-12] MEDS: LEVOTHYROXINE SODIUM 100 MCG VIAL 125 MCG IV (08:39)
[2025-09-12] MEDS: HEPARIN SODIUM (PORCINE) 5,000 UNIT/ML VIAL 5000 UNIT SUBQ ×2 (08:44→21:41)
--- NOTE | 2025-09-12 09:43 | P.IMPN_ITS ---
Progress Note: A&P Assessment and Plan (1) Nausea & vomiting: (2) Gastric malignant neoplasm: (3) Dehydration: Plan Intractable nausea and vomiting with abdominal pain likely the setting of stage IV gastric cancer Dehydration with decreased p.o. intake given the severe intractable nausea and vomiting Frailty and debility Hypokalemia in the setting of decreased p.o. intake - Admit patient to medical floor telemetry - Start LR 125 mg IV for total of at least 1 L for tonight - Start IV morphine 2 mg every 3 hours as needed - Start IV Zofran 2 mg every 4 hours as needed for nausea and vomiting - Treat intractable nausea and vomiting to Zofran with IV Compazine and IV Phenergan - Continuing fentanyl and scopolamine patches - Continue with IV fentanyl 40 mg daily for GI prophylaxis - Given her decreased p.o. intake, I started her on IV levothyroxine 125 mcg every 24-hour instead of her p.o. levothyroxine - I discussed the plan with the patient and her daughter, they are both in agreement with the plan - She is DNR CCA without intubation 09/12/2025 patient's potassium, phosphorus, and magnesium are being repleted aggressively with IV route. Will continue IV Zofran, Compazine, Phenergan, and I added IV metoclopramide to better control her symptoms.. She is almost done with 2 L of LR. I added 1 more liter. Discussed the plan with the nursing team. Internal Medicine - PN: Subj Subjective Interval history: Patient seen and examined at bedside. Still with severe nausea and vomiting abdominal pain. She cannot keep anything down. She has severe hypokalemia of 2.7 today with phosphorus of 1.8 and magnesium of 1.8. Denies any fever or chills. Exam Narrative Exam Narrative: General: Frail and fragile, malnourished, with dry mucous membrane dehydrated. Severely ill but not in acute distress pleasant patient she is in pain and nauseous on my exam. Skin:Warm, dry, and pallor was noted Head:Normocephalic, atraumatic, temporal wasting was noted on exam Eye: Normal conjunctiva, no drainage Ears, Nose, Mouth, and Throat: oral mucosa is mildly dry. Nares patent. Cardiovascular:Regular Rate and Rhythm Respiratory:Patient is in no distress, no accessory muscle use, lungs are clear to auscultation, no wheezing, rales or rhonchi Back:non-tender GI: Tenderness to the left upper quadrant, no signs of acute abdomen, normoactive bowel sounds. Musculoskeletal: The patient has no evidence of calf tenderness, no pitting edema, symmetrical pulses noted bilaterally Neurological: Awake and alert, following commands, no focal deficits Constitutional Vital Signs, click to edit/add: Last Vital Signs Temp 98.2 F 09/12/25 07:47 Pulse 96 H 09/12/25 08:00 Resp 18 09/12/25 07:47 BP 161/86 H 09/12/25 07:47 Pulse Ox 98 09/12/25 07:47 O2 Del Method Room Air 09/12/25 07:47 Internal Medicine - PN: Obj Da Labs Labs: Laboratory Results - last 24 hr 09/11/25 09/11/25 09/12/25 12:23 17:16 05:50 WBC 13.6 H 12.6 H RBC 5.00 4.43 Hgb 12.2 10.8 L Hct 38.0 33.7 L MCV 76.0 L 76.1 L MCH 24.4 L 24.4 L MCHC 32.1 32.0 RDW 15.8 H 15.8 H Plt Count 345 251 MPV 10.7 10.5 Neut % (Auto) 88.4 H 86.3 H Lymph % (Auto) 7.1 L 7.3 L Harlan % (Auto) 3.7 5.7 Eos % (Auto) 0.0 L 0.0 L Baso % (Auto) 0.2 0.2 Neut # (Auto) 12.0 H 10.9 H Lymph # (Auto) 1.0 L 0.9 L Harlan # (Auto) 0.5 0.7 Eos # (Auto) 0.0 0.0 Baso # (Auto) 0.0 0.0 Abs Immat Gran (auto) 0.08 H 0.06 H Imm/Tot Granulo (auto) 0.6 H 0.5 Sodium 138 140 Potassium 3.1 L 2.7 L* Chloride 96 L 98 Carbon Dioxide 30.2 27.6 Anion Gap 14.9 17.1 BUN 20.0 H 11.0 Creatinine 0.78 0.60 Est GFR ( Amer) >60 >60 Est GFR (Non-Af Amer) >60 >60 BUN/Creatinine Ratio 25.6 18.3 Glucose 140 H 115 H Calcium 10.1 8.7 Phosphorus 1.8 L Magnesium 1.8 Total Bilirubin 0.6 0.8 Direct Bilirubin 0.3 H AST 32 39 H ALT 11 L 10 L Alkaline Phosphatase 165 H 165 H Total Protein 7.3 6.8 Albumin 3.3 L 3.0 L Globulin 4.0 3.8 Albumin/Globulin Ratio 0.8 0.8 Amylase 36 Lipase 56.0 Urine Color Yellow Urine Clarity Sl cloudy Urine pH 6.0 Ur Specific [place] >=1.030 A Urine Protein 100 A Urine Glucose (UA) Negative Urine Ketones 40 A Urine Occult Blood Negative Urine Nitrite Positive A Urine Bilirubin Small A Urine Urobilinogen 1.0 Ur Leukocyte Esterase Negative Urine RBC 0-2 Urine WBC 2-5 A Ur Squamous Epith Cells Rare Urine Crystals None seen Urine Bacteria Large A Urine Casts Seen A Urine Mucus Small A Ur Culture Indicated? Yes-[facility]
[2025-09-12] MEDS: METOCLOPRAMIDE HCL 10 MG/2 ML VIAL 5 MG IVP ×2 (10:12→19:45)
[2025-09-12] MEDS: MAGNESIUM SULFATE IN WATER 4 GM/100 ML PIGGYBACK IV (10:13)
[2025-09-12] MEDS: MORPHINE SULFATE 4 MG/ML VIAL 3 MG IV ×5 (10:18→23:13)
--- OUTSIDE RECORDS SUMMARY | 2025-09-12 13:52 | XMS_ITS | Clinical Summary ---
Author Organization [facility] Address [address] [place] [address] Care Team Providers Care Conference Manager Name Role Phone Enzo Squires Primary Care Provider Kristina Satishbriseyda Machado Unavailable [phone] Allergies Active AllergyReactionsCriticalityNoted EoxkDnrcnlkcGfcsoasqhdoBhxkmxe01/16/2011 KkcutmspxeJdxuwebayrn48/16/2011Sulfa (Sulfonamide Antibiotics)Qsehvtw3303/16/2011 Medications MedicationSigDispense QuantityRefillsLast FilledStart DateEnd DateStatus Oxymorphone (OPANA ER) 40 mg ORAL 12 hr tablet Take 40 mg by mouth every 12 hours.Active Oxycodone 20 mg ORAL Tab Take by mouth.Active ZOLPIDEM TARTRATE (AMBIEN ORAL) Take by mouth.Active EZETIMIBE/SIMVASTATIN (VYTORIN 10-10 ORAL) Take by mouth.Active traZODONE 100 mg ORAL tablet Take 100 mg by mouth daily at bedtime.Active LEVOTHYROXINE SODIUM (SYNTHROID ORAL) Take by mouth.Active clonazePAM (KLONOPIN) 1 mg ORAL tablet Take 1 mg by mouth twice daily as needed.Active Active Problems ProblemNoted DateDiagnosed JqvvYrfjlqhndsmfrd22/06/2017 Social History Tobacco UseTypesPacks/DayYears UsedDateSmoking Tobacco: Never Assessed CommentsUnknownSex and Gender InformationValueDate RecordedSex Assigned at Not on fileLegal WsiQneesa98/02/2012 10:06 AM ESTGender IdentityNot on file Sexual OrientationNot on file Last Filed Vital Signs Vital SignReadingTime TakenCommentsBlood Zlhjpcbr306/64003/16/2011 2:34 PM EDT Lcfxs2969/16/2011 2:34 PM EDTTemperature--Respiratory Rate--Oxygen Saturation-- Inhaled Oxygen Concentration--Weight--Height--Body Mass Index-- Plan of Treatment Health MaintenanceDue DateLast DoneCommentsAnxiety Szvpvulwj40/09/1965Depression Atskezkyz16/09/1965Hepatitis C Jpyqdvryi40/09/1965DTaP,Tdap,Td Vaccine (1 - Tdap)1966Diabetes Sibfuvdrh78/09/1992Pneumococcal Vaccine: 50+ (1 of 1 - PCV)1997Shingrix Vaccine (1 of 2)1997Bone Density Screening 01/08/2012RSV Vaccine (1 - 1-dose 75+ series)2022dvance Directive Bhxtkgjohj35/01/2025ovid-19 Vaccine ( - 2024- season)2025Influenza Vaccine (#1)[address] [place] [address] Care Teams Team MemberRelationshipSpecialtyStart DateEnd Date Enzo Squires DO PCP - GeneralFamily Medicine02/15/11 Satish Acevedo [address] [place], [place] [address] [address] Primary Staff PhysicianCardiology12/17/18
--- OUTSIDE RECORDS SUMMARY | 2025-09-12 13:52 | XMS_ITS | Clinical Summary ---
Author Organization [facility] Address [address], [address] [place] [address] Care Team Providers Care Bus Repair Supervisor Name Role Phone Elijah Church MD Primary Care Provider [phone] Allergies Active AllergyReactionsCriticalityNoted NfdnWmkekhzrQcqwfgk51/25/2019Diflunisal 10/25/20182516Ofydtiydflehnsyb44/25/2019 Medications MedicationSigDispense QuantityRefillsLast FilledStart DateEnd DateStatus traZODone (DESYREL) 100 MG tablet Take 100 mg by mouth nightlyActive busPIRone (BUSPAR) 5 MG tablet Take 5 mg by mouth 3 times dailyActive clonazePAM (KLONOPIN) 0.5 MG tablet Take 0.5 mg by mouth 3 times daily..Active venlafaxine (EFFEXOR) 100 MG tablet Take 100 mg by mouth 2 times dailyActive tiZANidine (ZANAFLEX) 4 MG tablet Take 4 mg by mouth 2 times dailyActive escitalopram (LEXAPRO) 10 MG tablet Take 10 mg by mouth dailyActive levothyroxine (SYNTHROID) 200 MCG tablet Take 200 mcg by mouth DailyActive Multiple Vitamins-Minerals (THERAPEUTIC MULTIVITAMIN-MINERALS) tablet Take 1 tablet by mouth dailyActive pravastatin (PRAVACHOL) 40 MG tablet Take 40 mg by mouth dailyActive LORazepam (ATIVAN) 1 MG tablet Take 1 mg by mouth 3 times daily as needed for Anxiety..Active traMADol (ULTRAM) 50 MG tablet Take 50 mg by mouth every 8 hours as needed for Pain..Active Social History Tobacco UseTypesPacks/DayYears UsedDateSmoking Tobacco: FormerSmokeless Tobacco: NeverCommentsNoSex and Gender InformationValueDate RecordedSex Assigned at BirthNot on fileLegal JzvSlbqaj82/12/2013 1:37 AM ESTGender IdentityNot on fileSexual OrientationNot on file Last Filed Vital Signs Vital SignReadingTime TakenCommentsBlood Oehmtnod359/8810/25/2018 7:07 PM EST Uaskr945810/25/2018 7:07 PM QYFRqxrwobhaaq27.3 ??C (99.2 ??F)10/25/2018 7:07 PM ESTRespiratory Xrjg041010/25/2018 7:07 PM ESTOxygen Uebqwxfwit72%10/25/2018 7:07 PM ESTInhaled Oxygen Concentration--Weight--Height--Body Mass Index-- Plan of Treatment Not on file Insurance Care Teams Team MemberRelationshipSpecialtyStart DateEnd Elijah Church MD [address] [facility] [address] [place] [address] PCP - GeneralInternal Medicine10/25/18
--- OUTSIDE RECORDS SUMMARY | 2025-09-12 13:52 | XMS_ITS | Encounter Summary ---
Author Organization [facility] Address [address] [place] [address] Care Team Providers Care Wildland Fire Fighter Specialist Name Role Phone Moraima Warner NP Unavailable [phone] Mari Montana MD Unavailable [phone] Encounter Details DateTypeDepartmentCare Team (Latest Contact Info)Jzvhpzefdpk64/21/2025Telephone [facility] [address] [place] [address] [place] [id number] Elena Tirado NP [address] [place] [address] [place] [address] Social History Tobacco UseTypesPacks/DayYears UsedDateSmoking Tobacco: Never Assessed CommentsUnknownSex and Gender InformationValueDate RecordedSex Assigned at Not on fileLegal ZeiGmlxxu51/15/2023 6:47 PM EDTGender IdentityNot on fileSexual OrientationNot on filedocumented as of this encounter Miscellaneous Notes * Telephone Encounter - Elena Tirado NP - 08/30/2025 4:20 PM EST Opened in error documented in this encounter Plan of Treatment Not on file documented as of this encounter Visit Diagnoses Not on filedocumented in this encounter Care Teams Team MemberRelationshipSpecialtyStart DateEnd Date Moraima Warner NP [address] [place] [address] Referring PhysicianFamily Hymvfwzq58/11/23 Mari Montana MD [facility] [address], [place] [address] Primary Care ProviderFamily Medicine06/08/25documented as of this encounter
--- OUTSIDE RECORDS SUMMARY | 2025-09-12 13:52 | XMS_ITS ---
Author Organization [facility] Care Team Providers Care Security Representative Name Role Phone Arian Newell Unavailable Unavailable Allergies and adverse reactions Code CodeSystem Substance Reaction Severity StartDate Concern Status 1191 RXNORM Aspirin Unknown 12/26/2018 active LqrxsueKtsnanm58/28/0240nhkjkj64758HTSRJVExyqwhcyubvqfeovSalihpw94/28/2019active Care Team Name Role Address Phone Organization Dates Arian Newell PCP [address] [place], [address], [place] (Office): : [facility] 12/26/2018 - 12/27/2018 Mental Status Section Date Assessment Total Score Description 12/27/2018 BIMS 13 cognitively int act CAM 0 No delirium ind icated Insurance Providers Coverage Status Coverage Type Relationship to Subscriber Member Identifier Subscriber Identifier Group Identifier Payer Identifier and Other information Code: 1 Code System OID:[id number] 0.1.653368. 3.221.5 Code System Name: Source of Payment Typology (PHDSC) Display: Medicare Translation : Code: EVELIN Code System: OID:2.16.84 0.1.130494. 6.255.1336 Code System Name: Insurance Type Code ([id number]) Display Name: Medicare Part A Problems Problem # Description Date of onset Resolved Date Code CodeSystem Concern Status 1 ABNORMAL COAGULATION PROFILE 12/26/[address] active 2 AGE-RELATED OSTEOPOROSIS WITHOUT CURRENT PATHOLOGICAL FRACTURE 12/26/[address] active 3 ANXIETY DISORDER, UNSPECIFIED 12/26/[address] active 4 ARTHROPATHY, UNSPECIFIED 12/26/[address] active 5 BRADYCARDIA, UNSPECIFIED 12/26/[address] active 6 CARDIOMYOPATHY, UNSPECIFIED 12/26/[address] active 7 ENTEROCOLITIS DUE TO CLOSTRIDIUM DIFFICILE, NOT SPECIFIED RECURRENT 12/26/[address] active 8 ESSENTIAL (PRIMARY) HYPERTENSION 12/26/[address] active 9 FIBROMYALGIA 12/26/[address] acti ve 10 HISTORY OF FALLING 12/26/[address] active 11 HYPERLIPIDEMIA, UNSPECIFIED 12/26/[address] active 12 HYPO-OSMOLALITY AND HYPONATREMIA 12/26/[address] active 13 HYPOTHYROIDISM, UNSPECIFIED 12/26/[address] active 14 INTRACARDIAC THROMBOSIS, NOT ELSEWHERE CLASSIFIED 12/26/[address] active 15 LONG QT SYNDROME 12/26/[address] ac tive 16 MAJOR DEPRESSIVE DISORDER, RECURRENT, UNSPECIFIED 12/26/[address] active 17 NICOTINE DEPENDENCE, UNSPECIFIED, UNCOMPLICATED 12/26/[address] active 18 ORTHOSTATIC HYPOTENSION 12/26/[address] active 19 OTHER ILL-DEFINED HEART DISEASES 12/26/[address] active 20 OTHER INTERVERTEBRAL DISC DEGENERATION, LUMBAR REGION 12/26/[address] active 21 OTHER SPECIFIED PERSONAL RISK FACTORS, NOT ELSEWHERE CLASSIFIED 12/26/[address] active 22 REPEATED FALLS 12/26/[address] ac tive 23 SEDATIVE, HYPNOTIC OR ANXIOLYTIC DEPENDENCE, UNCOMPLICATED 12/26/[address] active 24 TAKOTSUBO SYNDROME 12/26/2018 76125[address]77 SNOM[address] C T active Reason for Referral No Reasons for Referral Entered Social History Social History Observation Description Start Date End Date Code Code System Current Smoking Status Tobacco smoking consumption unknown 736680887 SNOMED CT Sex Assigned At Female 1945 24073-1 [facility] Gender Identity Sexual Orientation Vital Signs Code Code System Vitals Name Values and Units Timing Information 9279-1 [facility] Respiratory Rate Value=18.0 Units=/m in 12/27/2018 8462-4 [facility] Blood Pressure-Diastolic Value=82 Un its=mmHg 12/27/2018 8480-6 [facility] Blood Pressure-Systolic Ktisd=237 Un its=mmHg 12/27/2018 8310-5 [facility] Body Temperature Value=97.9 Units= F 12/27/2018 8867-4 [facility] Heart rate Value=47.0 Units=/min 27842-7 [facility] O2 % BldC Oximetry Value=97.0 Units= % 12/27/2018 55182-4 [facility] Pain Level Value=3.0 12/27/2018 17067-8 [facility] Weight Vndkl=405.5 Units=Lbs 8302-2 [facility] Height Value=64.0 Units=Inches 12/27/2018
--- OUTSIDE RECORDS SUMMARY | 2025-09-12 13:52 | XMS_ITS | Encounter Summary ---
Author Organization [facility] Address [address] [place] [address] Care Team Providers Care Case Investigator Name Role Phone Moraima Warner NP Unavailable [phone] Mari Montana MD Unavailable [phone] Encounter Details DateTypeDepartmentCare Team (Latest Contact Info)Epigwtxjrdv89/12/2025Clinisync Result Encounter [facility] External Department Unsolicited Provider, Generic External Data Social History Tobacco UseTypesPacks/DayYears UsedDateSmoking Tobacco: Never Assessed CommentsUnknownSex and Gender InformationValueDate RecordedSex Assigned at Not on fileLegal EpvZsfxwu35/15/2023 6:47 PM EDTGender IdentityNot on fileSexual OrientationNot on filedocumented as of this encounter Plan of Treatment NameTypePriorityAssociated DiagnosesDate/TimeURINE [facility]LabRoutine 09/11/2025 5:16 PM ESTdocumented as of this encounter Procedures Procedure NamePriorityDate/TimeAssociated DiagnosisCommentsUR[facility] Wygwzvl0109/11/2025 5:16 PM ESTdocumented in this encounter Visit Diagnoses Not on filedocumented in this encounter Care Teams Team MemberRelationshipSpecialtyStart DateEnd Date Moraima Warner NP [address] [place] [address] Referring PhysicianFamily Txrvvqsv60/11/23 Mari Montana MD [address] [place] [address] Primary Care ProviderFamily Medicine06/08/25documented as of this encounter
--- OUTSIDE RECORDS SUMMARY | 2025-09-12 13:53 | XMS_ITS | Clinical Summary ---
Author Organization [facility] Address [address] [facility] [place] [address] Care Team Providers Care Inspector Integrated Circuits Name Role Phone Moraima Warner NP Unavailable [phone] Mari Montana MD Unavailable [phone] Medications MedicationSigDispense QuantityRefillsLast FilledStart DateEnd DateStatus fentaNYL (Duragesic) 50 MCG/HR Indications:PainPlace 1 patch over 72 hours on the skin every 3rd (third) day 10 patch 5110/13/2024Expired Encounters DateTypeDepartmentCare EgjeJebwvtryehy02/12/2025linisync Result Encounter [facility] External Department Unsolicited Provider, Generic External Data 08/21/2025[facility] [address] [facility] [address] [place] [phone] Elena Tirado NP 07/14/2025[facility] [address] [place] [address] Elena Tirado NP 07/14/2025bstract [facility] [address] [place] [address] Unallocated, Noms MD Jessica from Last 3 Months Social History Tobacco UseTypesPacks/DayYears UsedDateSmoking Tobacco: Never Assessed CommentsUnknownSex and Gender InformationValueDate RecordedSex Assigned at Not on fileLegal PseLpkzda35/15/2023 6:47 PM EDTGender IdentityNot on fileSexual OrientationNot on file Last Filed Vital Signs Vital SignReadingTime TakenCommentsBlood Pressure--Pulse--Temperature-- Respiratory Rate--Oxygen Saturation--Inhaled Oxygen Concentration--Gahffg39.1 kg (181 lb)05/06/2018 12:00 PM XXKOcobbj595 cm (5' 3 )05/06/2018 12:00 PM EDTBody Mass Index32.0605/06/2018 12:00 PM EDT Plan of Treatment Not on file Procedures Procedure NamePriorityDate/TimeAssociated DiagnosisCommentsURINE CULTURE - [facility] [place] Iyxgwlb8809/11/2025 5:16 PM ESTfrom Last 3 Months Insurance Care Teams Team MemberRelationshipSpecialtyStart DateEnd Moraima Warner NP [address] [place] [address] Referring PhysicianFamily Irxerecf40/11/23 Mari Montana MD [address] [place] [address] Primary Care ProviderFamily Medicine06/08/25
--- OUTSIDE RECORDS SUMMARY | 2025-09-12 13:54 | XMS_ITS | Patient Health Record ---
Author Organization [facility] Address [address] [place] [address] Care Team Providers Care Shell Reprint Operator Name Role Phone Anjelica Borges Primary Care Provider Douglas Daniels Unavailable [phone] Allergies Allergen (clinical drug ingredient) Drug/Non Drug Allergy documented on EMR Reaction Allergy Type Onset Date Status sulfacetamide Sulfacetamide Unknown Drug Allergy Active Reason For Referral No Information Medications Medication SIG (Take, Route, Frequency, Duration) Notes Start Date End Date Status traZODone HCl 50 MG Tablet 1 tablet at b edtime as needed Orally Once a day; Duration: 30 days ActiveLevothyroxine Sodium 150 MCG Tablet1 tablet in the morning on an empty stomach Orally Once a dayActiveamLODIPine Besylate 5 MG Tablet1 tablet Orally Once a dayActiveSpironolactone 25 MG Tablet1 tablet OrallyActiveAuvelity 45-105 MG Tablet Extended Release1 tablet Orally twice a day (bid); Duration: 30 days 3ActiveclonazePAM 0.5 MG Tablet1 tablet Oral twice a day (bid) as needed (prn); Duration: 30 days5ActiveMetoprolol Succinate 25 MG Capsule ER 24 Hour Sprinkle1 capsule Orally Once a dayActiveSEROquel 100 MG Tablet1 tablet at bedtime Orally Once a day; Duration: 90 daysActivehydrOXYzine HCl 10 MG Tablet1 tablet Oral three times a day (tid) as needed (prn); Duration: 30 daysActivePantoprazole Sodium 20 MG Tablet Delayed Release1 tablet Orally Once a dayActive Social History Tobacco Use: Social History Observation Description Date Details (start date - stop date) Current Smoker NA - NA Sex Assigned At : Social History Observation Description Sex Assigned At Female Social History GeneralSocial InfoQuestionAnswerNotesDepression Screening (PHQ-9):Little interest or pleasure in doing thingsNot at allFeeling down, depressed, or hopelessNot at allTrouble falling or staying asleep, or sleeping too muchNearly every dayFeeling tired or having little energySeveral daysPoor appetite or overeatingNearly every dayFeeling bad about yourself-or that you are a failure or have let yourself or your family downSeveral daysTrouble concentrating on things, such as reading the newspaper or watching televisionNot at allMoving or speaking so slowly that other people could have noticed. Or the opposite being so fidgetyor restless that you have been moving around a lot more than usualNot at allThoughts that you would be better off , or of hurting yourself in some wayNot at allTotal Ykwer1FnyblvpijpeukMkhi DepressionSubstance abuse/mental health issues of patient/familyPatient -DeniesDrug/Alcohol:Social InfoQuestion AnswerNotesAUDIT-C (Standard)Did you have a drink containing alcohol in the past year?PnTflogl2TjkzhtwbzuindjAntuwmbvHpfrhhk Use:Social InfoQuestionAnswerNotes Tobacco Control (Standard)Tobacco use:Current smoker? How often do you smoke cigarettes?Every day? 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)Activeconfirmed Vital Signs Heart Rate 58 /min 01/06/2025 Jlgxxqxgund95.7 degrees Jjijnibbbk76/11/7051Myhwzwsd75 %01/06/2025lood pressure hydprufvi59 mm Hg01/06/20258746Nnidsb21 in01/06/2025lood pressure jaxzasun276 mm Hg 01/06/20257398Tzpalu730.6 lbs01/06/2025BMI30.39 kg/m201/06/2025 Encounters Encounter Location Date Provider Diagnosis [facility] [address] [place] [address] 09/23/2024 Kip Soviak Agoraphobia with soto ic attacks F40.01 [facility] [address] [place] [address] 09/29/2024 Kip Soviak Agoraphobia with soto ic attacks F40.01 and Generalized anxiety disorder F41.1 [facility] [address] [place] [address] 09/29/2024 Kip Soviak [facility] [place] [address]/Kip SoviakAgoraphobia with panic attacks F40.01[place] [address] [place] [address]/03/2025Kip SoviakGeneralized anxiety disorder F41.1[place] [address] [place] [address]/Kip SoviakAgoraphobia with panic attacks F40.01 and Generalized anxiety disorder F41.1[place] [address] [place] [address]/Kip SoviakGeneralized anxiety disorder F41.1 [place] [address] [place] [address]/12/2024 Kip SoviakGeneralized anxiety disorder F41.1[place] [address] [place] [address]/Kip SoviakAgoraphobia with panic attacks F40.01[place] [address] [place] [address]/11/2024Kip SoviakGeneralized anxiety disorder F41.1[facility] [address] [place] [address]/Kip Soviak Agoraphobia with panic attacks F40.01[facility] [place] [address]/01/2025Kip SoviakFaben[facility] [address] [place] [address]/05/2025Kip SoviakGeneralized anxiety disorder F41.1[facility] [address] [place] [address]/05/2025Kip SoviakAgoraphobia with panic attacks F40.01[facility] [address] [place] [address]/Kip Soviak Agoraphobia with panic attacks F40.01 and Generalized anxiety disorder F41.1 [facility] [address] [place] [address]/Kip SoviakAgoraphobia with panic attacks F40.01[facility] [address] [place] [address]/10/2024Kip SoviakGeneralized anxiety disorder F41.1[facility] [address] [place] [address] 04/16/2025Tracey HyltonAgoraphobia with panic attacks F40.01[facility] [place] [address]/Tracey Katerina Generalized anxiety disorder F41.1[facility] [address] [place] [address]/Tracey HyltonGeneralized anxiety disorder F41.1 [facility] [place] [address]/12/2024 Anjelica HyltonAgoraphobia with panic attacks F40.01[facility] [place] [address]/Tracey HyltonAgoraphobia with panic attacks F40.[address] [place] [address]/Tracey HyltonFHS [address] [place] [address]/03/2025Kip SoviakGeneralized anxiety disorder F41.[address] [place] [address]/08/2025Kip SoviakGeneralized anxiety disorder F41.1F [address] [place] [address]/08/2025Kip SoviakAgoraphobia with panic attacks F40.01 and Generalized anxiety disorder F41.1F [address] [place] [address]/05/2025Kip Soviak Generalized anxiety disorder F41.1 Assessments Encounter Date Diagnosis (ICD Code) Assessment Notes Treatment Notes Treatment Clinical Notes Section Notes 12/09/2024 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 . Selective serotonin reuptake inhibitors? can cause nausea, headache, upset stomach, diarrhea, constipation, anxiety, irritability, and sexual dysfunction. . Please monitor for worsening of symptoms, especially suicidal ideations or morbid thoughts, and call office and or go to the emergency department immediately. Pt does not endorse exhibiting symptoms aligning with devonte. . The patient verbalizes understanding with all questions answered thoroughly and is in agreement with treatment plan. . Continue current treatment plan Patient/Guardian will call sooner if symptoms worsen. Patient understands to go to ER if needed if symptoms become severe. Crisis Intervention plan was discussed and agreed upon. Patient/Guardian will call 911 in case of emergency. Emergency contact information was provided to the patient/guardian. 11/11/2024Generalized anxiety disorder (ICD-10 - F41.1) Informed consent obtained: YES, we discussed the diagnosis/diagnoses, the treatment options, treatment(s) recommendations vs. no treatment. We discussed risks and benefits of treatment options, treatment recommendations vs. no treatment. Currently at low risk for self harm. Denies ongoing feelings of hopelessness. Denies ongoing suicidal ideation, intent or plan in session. Pharmacological management: Alternative medication plans were discussed with the patient and or guardian. All relevant and serious adverse effects were discussed. Standard precautions and potential benefits were discussed. Patient/Guardian consented to begin medication/ continue treatment plan. questions answered satisfactorily, agreeable to treatment plan Cont current treatment Tolerating meds well, compliant Call for problems Follow up 3 months Patient/Guardian will call sooner if symptoms worsen. Patient understands to go to the ER if neededif symptoms become severe. Crisis intervention plan was discussed and agreed upon. Patient/Guardian will call 911 in case of emergency. Emergency contact information was provided to the patient/guardian. 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 . Selective serotonin reuptake inhibitors? can cause nausea, headache, upset stomach, diarrhea, constipation, anxiety, irritability, and sexual dysfunction. . Please monitor for worsening of symptoms, especially suicidal ideations or morbid thoughts, and call office and or go to the emergency department immediately. Pt does not endorse exhibiting symptoms aligning with devonte. . The patient verbalizes understanding with all questions answered thoroughly and is in agreement with treatment plan. . Continue current treatment plan Patient/Guardian will call sooner if symptoms worsen. Patient understands to go to ER if needed if symptoms become severe. Crisis Intervention plan was discussed and agreed upon. Patient/Guardian will call 911 in case of emergency. Emergency contact information was provided to the patient/guardian. 5Agoraphobia with panic attacks (ICD-10 - F40.01)02/05/2025Generalized anxiety disorder (ICD-10 - F41.1)02/05/2025goraphobia with panic attacks (ICD- 10 - F40.01)09/29/2024goraphobia with panic attacks (ICD-10 - F40.01)10/07/2024 Generalized anxiety disorder (ICD-10 - F41.1) Recommended treatment is: _ FDA approved medication for this age group include Selective Serotonin Reuptake Inhibitors (SSRI) and Selective Norepinephrine Reuptake Inhibitors (SNRI). . Selective serotonin reuptake inhibitors? can cause nausea, headache, upset stomach, diarrhea, constipation, anxiety, irritability, and sexual dysfunction. . Please monitor for worsening of symptoms, especially suicidal ideations or morbid thoughts, and call office and or go to the emergency department immediately. Pt does not endorse exhibiting symptoms aligning with devonte. . The patient verbalizes understanding with all questions answered thoroughly and is in agreement with treatment plan. . Continue current treatment plan Patient/Guardian will call sooner if symptoms worsen. Patient understands to go to ER if needed if symptoms become severe. Crisis Intervention plan was discussed and agreed upon. Patient/Guardian will call 911 in case of emergency. Emergency contact information was provided to the patient/guardian. 5Agoraphobia with panic attacks (ICD-10 - F40.01)11/06/2024Generalized anxiety disorder (ICD-10 - F41.1)11/25/2024goraphobia with panic attacks (ICD- 10 - F40.01)11/26/2024Generalized anxiety disorder (ICD-10 - F41.1)12/02/2024 Generalized anxiety disorder (ICD-10 - F41.1)12/09/2024Generalized anxiety disorder (ICD-10 - F41.1) Recommended treatment is: _ FDA approved medication for this age group include Selective Serotonin Reuptake Inhibitors (SSRI) and Selective Norepinephrine Reuptake Inhibitors (SNRI). . Selective serotonin reuptake inhibitors? can cause nausea, headache, upset stomach, diarrhea, constipation, anxiety, irritability, and sexual dysfunction. . Please monitor for worsening of symptoms, especially suicidal ideations or morbid thoughts, and call office and or go to the emergency department immediately. Pt does not endorse exhibiting symptoms aligning with devonte. . The patient verbalizes understanding with all questions answered thoroughly and is in agreement with treatment plan. . Continue current treatment plan Patient/Guardian will call sooner if symptoms worsen. Patient understands to go to ER if needed if symptoms become severe. Crisis Intervention plan was discussed and agreed upon. Patient/Guardian will call 911 in case of emergency. Emergency contact information was provided to the patient/guardian. 09/23/2024goraphobia with panic attacks (ICD-10 - F40.01)09/29/2024Generalized anxiety disorder (ICD-10 - F41.1)02/11/2025Generalized anxiety disorder (ICD-10 - F41.1)11/25/2024Generalized anxiety disorder (ICD-10 - F41.1) Plan Of Treatment No Information Insurance Providers Payer Name Payer Address Payer Phone Subscriber Number Group Number Insured Name Patient Relationship to Insured Coverage Start Date Coverage End Date MEDICARE CGS [address] [place] [address] [id number] Marilu SPANN - patient is the [id number] 2022ARP MEDICARE SUPPLEMENTAARP HEALTHCARE OPTIONS [address] [place] [phone] Marilu SPANN - patient is the [id number] Medical (General) History Medical History History ICD Code agoraphobia depressionHospitalization History Reason Date(Month/Year) [address] Oct 2019
--- OUTSIDE RECORDS SUMMARY | 2025-09-12 13:54 | XMS_ITS ---
Author Organization [facility] Care Team Providers Care Cable Tower Operator Name Role Phone Arian Newell Unavailable Unavailable Allergies and adverse reactions Code CodeSystem Substance Reaction Severity StartDate Concern Status 1191 RXNORM Aspirin Unknown 12/26/2018 active VtjpjxqEsfrluo33/28/5142pagfll19845IAYQFZMwujfoqytynyxdajOqxerki72/28/2019active Care Team Name Role Address Phone Organization Dates Arian Newell PCP [address] [place], [address], [place] (Office): : [facility] 12/26/2018 - 12/27/2018 Mental Status Section Date Assessment Total Score Description 12/27/2018 BIMS 13 cognitively int act CAM 0 No delirium ind icated Insurance Providers Coverage Status Coverage Type Relationship to Subscriber Member Identifier Subscriber Identifier Group Identifier Payer Identifier and Other information Code: 1 Code System OID:[id number]. 3.221.5 Code System Name: Source of Payment Typology (PHDSC) Display: Medicare Translation : Code: EVELIN Code System: OID:[id number]. 6.255.1336 Code System Name: Insurance Type Code ([id number]) Display Name: Medicare Part A Problems Problem # Description Date of onset Resolved Date Code CodeSystem Concern Status 1 ABNORMAL COAGULATION PROFILE 12/26/[address] active 2 AGE-RELATED OSTEOPOROSIS WITHOUT CURRENT PATHOLOGICAL FRACTURE 12/26/[address] active 3 ANXIETY DISORDER, UNSPECIFIED 12/26/[address] active 4 ARTHROPATHY, UNSPECIFIED 12/26/[address] active 5 BRADYCARDIA, UNSPECIFIED 12/26/[address] active 6 CARDIOMYOPATHY, UNSPECIFIED 12/26/[address] active 7 ENTEROCOLITIS DUE TO CLOSTRIDIUM DIFFICILE, NOT SPECIFIED RECURRENT 12/26/[address] active 8 ESSENTIAL (PRIMARY) HYPERTENSION 12/26/[address] active 9 FIBROMYALGIA 12/26/[address] acti ve 10 HISTORY OF FALLING 12/26/[address] active 11 HYPERLIPIDEMIA, UNSPECIFIED 12/26/[address] active 12 HYPO-OSMOLALITY AND HYPONATREMIA 12/26/[address] active 13 HYPOTHYROIDISM, UNSPECIFIED 12/26/[address] active 14 INTRACARDIAC THROMBOSIS, NOT ELSEWHERE CLASSIFIED 12/26/[address] active 15 LONG QT SYNDROME 12/26/[address] ac tive 16 MAJOR DEPRESSIVE DISORDER, RECURRENT, UNSPECIFIED 12/26/[address] active 17 NICOTINE DEPENDENCE, UNSPECIFIED, UNCOMPLICATED 12/26/[address] active 18 ORTHOSTATIC HYPOTENSION 12/26/[address] active 19 OTHER ILL-DEFINED HEART DISEASES 12/26/[address] active 20 OTHER INTERVERTEBRAL DISC DEGENERATION, LUMBAR REGION 12/26/[address] active 21 OTHER SPECIFIED PERSONAL RISK FACTORS, NOT ELSEWHERE CLASSIFIED 12/26/[address] active 22 REPEATED FALLS 12/26/[address] ac tive 23 SEDATIVE, HYPNOTIC OR ANXIOLYTIC DEPENDENCE, UNCOMPLICATED 12/26/[address] active 24 TAKOTSUBO SYNDROME 12/26/2018 774295855 SNOMED C T active Reason for Referral No Reasons for Referral Entered Social History Social History Observation Description Start Date End Date Code Code System Current Smoking Status Tobacco smoking consumption unknown 664965361 SNOMED CT Sex Assigned At Female 1945 20474-4 [facility] Gender Identity Sexual Orientation Vital Signs Code Code System Vitals Name Values and Units Timing Information 9279-1 [facility] Respiratory Rate Value=18.0 Units=/m in 12/27/2018 8462-4 [facility] Blood Pressure-Diastolic Value=82 Un its=mmHg 12/27/2018 8480-6 [facility] Blood Pressure-Systolic Manzi=792 Un its=mmHg 12/27/2018 8310-5 [facility] Body Temperature Value=97.9 Units= F 12/27/2018 8867-4 [facility] Heart rate Value=47.0 Units=/min 49751-3 [facility] O2 % BldC Oximetry Value=97.0 Units= % 12/27/2018 42029-0 [facility] Pain Level Value=3.0 12/27/2018 55490-5 [facility] Weight Aanll=365.5 Units=Lbs 8302-2 [facility] Height Value=64.0 Units=Inches 12/27/2018
[2025-09-12] MEDS: POTASSIUM PHOS,M-BASIC-D-BASIC 15 MMOL in 0.9 % SODIUM CHLORIDE 100 ML 26.25 MMOL IV (16:25)
[2025-09-12] MEDS: SUCRALFATE 1 GM TABLET PO (21:40)
[2025-09-13] VITALS (12 sets, daily range): BP systolic 108–119; BP diastolic 70–87; PULSE 88–120; TEMP 36.6–36.9; O2SAT 93–98
[2025-09-13] MEDS: MORPHINE SULFATE 4 MG/ML VIAL 3 MG IV ×3 (02:14→10:23)
[2025-09-13] MEDS: METOCLOPRAMIDE HCL 10 MG/2 ML VIAL 5 MG IVP ×3 (02:15→16:15)
[2025-09-13] MEDS: PROCHLORPERAZINE 10 MG/2 ML VIAL 5 MG IV (04:54)
[2025-09-13] MEDS: HYOSCYAMINE SULFATE 0.125 MG TAB.SUBL PO ×2 (05:18→13:42)
[2025-09-13] MEDS: PROMETHAZINE HCL 12.5 MG in 0.9 % SODIUM CHLORIDE 50 ML 202 MG IV (06:18)
[2025-09-13 06:22] LABS: Hematocrit 38.5 % (36.0-48.0); Hemoglobin 12.3 g/dL (12.0-16.0); Immature Granulocytes Abs Auto 0.03 10^3/uL (0.00-0.03); Immature Granulocytes Pct Auto 0.4 % (0.0-0.5); Lymphocytes Absolute Auto 1.1 10^3/uL (1.2-3.8); Mean Corpuscular HGB Conc 31.9 g/dL (29.9-35.2); Mean Corpuscular Hemoglobin 24.1 pg (26.7-34.0); Mean Corpuscular Volume 75.3 fL (81.0-99.0); Platelet Count 284 10^3/uL (150-450); Red Blood Count 5.11 10^6/uL (4.20-5.40); White Blood Count 7.6 10^3/uL (4.0-11.0)
[2025-09-13] MEDS: 0.9 % SODIUM CHLORIDE 250 ML 10 ML IV (06:24)
[2025-09-13 06:37] LABS: Alanine Aminotransferase 19 U/L (14-59); Albumin Globulin Ratio 0.8; Albumin Level 2.8 g/dL (3.4-5.0); Alkaline Phosphatase 264 U/L (46-116); Anion Gap 17.2; Aspartate Amino Transferase 52 U/L (15-37); Blood Urea Nitrogen 8.0 mg/dL (7.0-18.0); Calcium 7.7 mg/dL (8.5-10.1); Carbon Dioxide 27.7 mmol/L (21.0-32.0); Chloride 92 mmol/L (98-107); Estimated GFR (African America >60 (>=60 mL/min/1.73m^2); Estimated GFR (Non-African Ame >60 (>=60 mL/min/1.73m^2); Globulin 3.5 g/dL; Glucose 132 mg/dL (74-106); Magnesium 2.2 mg/dL (1.8-2.4); Sodium 134 mmol/L (136-145); Total Protein 6.3 g/dL (6.4-8.2)
[2025-09-13 06:51] LABS: Potassium 2.9 mmol/L (3.5-5.1)
[2025-09-13] MEDS: HEPARIN SODIUM (PORCINE) 5,000 UNIT/ML VIAL 5000 UNIT SUBQ (10:23)
[2025-09-13] MEDS: PANTOPRAZOLE SODIUM 40 MG VIAL IV (10:24)
[2025-09-13] MEDS: 0.9 % SODIUM CHLORIDE 10 ML VIAL 5 ML IV (10:25)
[2025-09-13] MEDS: LEVOTHYROXINE SODIUM 100 MCG VIAL 125 MCG IV (10:25)
--- NOTE | 2025-09-13 13:14 | P.IMPN_ITS ---
Progress Note: A&P Assessment and Plan (1) Nausea & vomiting: (2) Gastric malignant neoplasm: (3) Dehydration: Plan Assessment: Intractable nausea and vomiting. Intractable abdominal pain. Gastric malignant neoplasm. Hypokalemia. Patient had hospice and was had an ECF under [facility]. Patient was sent here to the hospital because her symptoms were not controllable at the ECF under the care of [facility]. Discussion: In this situation, and clearly end-stage cancer process and hospice care I would not have telemetry monitoring. She may have electrolyte abnormalities such as hypokalemia but I would not treat these with IV or oral potassium replacement. She is clearly declared how rough the situation is by how much abdominal pain and how much intractable nausea and vomiting that she has. This will be a difficult situation to manage medically but I will try and intensify medications for this at this time. Plan: Trying to restart oral liquid morphine at a low dose of 5 mg sublingually and advance as tolerated as long as this does not worsen her vomiting. For nausea vomiting will do Geodon 10 mg IM every 4 hours as needed. I have increased her dose of Compazine to 10 mg IV every 4 hours as needed. As discussed above, I have stopped medications which are of no benefit in this situation such as oral Colace, oral Carafate, oral thiamine, and oral folic acid. Case management should come on board on Sunday and I think be able to get the patient additional assistance with this palliative care and hospice journey. Internal Medicine - PN: Subj Subjective Interval history: Patient is seen this afternoon. Continues to have vomiting. Does not report diarrhea. Continues to have abdominal pain. When I going to see the patient she is on telemetry. Previous IV fluids that had been running have been stopped. She is lying in bed on her right side. She has her eyes closed. She does wake up when I examined her. She has pain all throughout her abdomen. She tells me the rest of her body does not have pain or problems. She actually jolts upright in bed with spasms of pain that causes her to well while I examine her. She then asks for a sip of ice water. There is an emesis bag on her bedside table which does have a mild amount of liquid vomit in it from earlier today. When I asked the patient she says that she was at the custodial facility under hospice care for just a couple days. Nursing tells me that at the custodial facility under hospice they tried to use liquid Roxanol but it seemed to make her vomiting worse. I called and talked to our pharmacy. We do start Roxanol at 20 mg per 1 mL. So I will try and start slow at 5 mg sublingually, with help from she had done injections. I am also going to order liquid Ativan in case she has anxiety as that may also help calm down her vomiting. And I have increased the dose on the IV Compazine. She was on some oral medications which I think are of no benefit in hospice irene todd who clearly does not have very much time to live: So I have stopped medication such as oral Carafate, oral folic acid, oral thiamine, and oral Colace. I do not think that the patient is having significant constipation but if she were to complain of constipation I have ordered Dulcolax suppositories to be used at 10 mg twice a day if needed for constipation. Exam Narrative Exam Narrative: Very thin and very frail 80-year-old woman, very pale. Lying on her side. Alone in the room with no family visiting her. Is resting when I walk in the room but wakes up to my exam. Has acute severe spasms abdominal pain that caused her to jerk herself upward to bed. She is able to calm these down after few seconds but then asks for a few sips of water. Skin: Warm and dry all over. Not diaphoretic. Not cyanotic. Not with any mottling. Lower extremities: Significant muscle wasting is present, consistent with end- stage disease process. Cardiac: Regular to auscultation. Pulmonary: Clear to auscultation. No wheezes. No rhonchi. No crackles. No cough. GI: Very limited examination due to the pain but I do not detect any acute peritoneal signs. Constitutional Vital Signs, click to edit/add: Last Vital Signs Temp 97.9 F 09/13/25 10:38 Pulse 106 H 09/13/25 12:00 Resp 18 09/13/25 10:38 BP 108/70 09/13/25 10:38 Pulse Ox 93 L 09/13/25 10:38 O2 Del Method Room Air 09/13/25 10:38 Internal Medicine - PN: Obj Da Labs Labs: Laboratory Results - last 24 hr 09/13/25 06:12 WBC 7.6 RBC 5.11 Hgb 12.3 Hct 38.5 MCV 75.3 L MCH 24.1 L MCHC 31.9 RDW 15.9 H Plt Count 284 MPV 10.1 Neut % (Auto) 80.7 H Lymph % (Auto) 14.7 L Morgan % (Auto) 3.8 Eos % (Auto) 0.1 L Baso % (Auto) 0.3 Neut # (Auto) 6.1 Lymph # (Auto) 1.1 L Morgan # (Auto) 0.3 Eos # (Auto) 0.0 Baso # (Auto) 0.0 Abs Immat Gran (auto) 0.03 Imm/Tot Granulo (auto) 0.4 Sodium 134 L Potassium 2.9 L* Chloride 92 L Carbon Dioxide 27.7 Anion Gap 17.2 BUN 8.0 Creatinine 0.54 L Est GFR ( Amer) >60 Est GFR (Non-Af Amer) >60 BUN/Creatinine Ratio 14.8 Glucose 132 H Calcium 7.7 L Phosphorus 2.4 L Magnesium 2.2 Total Bilirubin 1.1 H AST 52 H ALT 19 Alkaline Phosphatase 264 H Total Protein 6.3 L Albumin 2.8 L Globulin 3.5 Albumin/Globulin Ratio 0.8
[2025-09-13] MEDS: WATER FOR INJECTION, STERILE 20 ML VIAL INJ (13:42)
[2025-09-13] MEDS: ZIPRASIDONE MESYLATE 20 MG VIAL 10 MG IM (13:42)
[2025-09-13] MEDS: PROCHLORPERAZINE 10 MG/2 ML VIAL IV ×2 (13:42→17:45)
[2025-09-13] MEDS: LORAZEPAM 2 MG/ML ORAL CONCENTRATE BOTTLE 0.5 MG BUCCAL ×3 (13:42→17:11)
[2025-09-13] MEDS: MORPHINE SULFATE 20 MG/ML ORAL CONCENTRATE BOTTLE 5 MG SL ×2 (13:46→15:15)
[2025-09-13] MEDS: HYDROMORPHONE HCL 1 MG/ML CARTRIDGE IV ×3 (16:16→17:45)
--- NOTE | 2025-09-13 18:59 | PC.NURSE ---
Dr. Wright aware of patients no urine output
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
[2025-09-14] VITALS (8 sets, daily range): BP systolic 82–97; BP diastolic 46–64; PULSE 92–138; TEMP 36.4–38.3; O2SAT 90–95; BMI 18.0
[2025-09-14] MEDS: HYDROMORPHONE HCL 1 MG/ML CARTRIDGE 2 MG IV ×4 (02:30→12:33)
[2025-09-14] MEDS: HEPARIN SODIUM (PORCINE) 5,000 UNIT/ML VIAL 5000 UNIT SUBQ (09:29)
[2025-09-14] MEDS: LEVOTHYROXINE SODIUM 100 MCG VIAL 125 MCG IV (09:30)
[2025-09-14] MEDS: 0.9 % SODIUM CHLORIDE 10 ML VIAL 5 ML IV (09:30)
[2025-09-14] MEDS: PANTOPRAZOLE SODIUM 40 MG VIAL IV (09:30)
[2025-09-14] MEDS: FENTANYL 50 MCG/HR PATCH.TD72 100 MCG TD (09:31)
--- NOTE | 2025-09-14 09:47 | CM.NOTE ---
Important Message From medicare discussed with pt, pt verbalizes understanding and signs paper. Original given to pt and copy placed on pt's chart.
--- NOTE | 2025-09-14 09:49 | P.IMPN_ITS ---
Progress Note: A&P Assessment and Plan (1) Nausea & vomiting: (2) Gastric malignant neoplasm: (3) Dehydration: Plan CODE STATUS is now comfort care, continue comfort measures as below and await evaluation by hospice care for inpatient hospice unit, qualifies due to intractable pain - Continue Rocephin 1 mg IV daily for potential UTI, urine cultures show stoo- susceptible E. coli - Fentanyl 50 micrograms patch every 72 hours - Dilaudid 2 mg IV every hour as needed - Lorazepam 2 mg IV every 1 hour as needed - Prochlorperazine mg IV every 4 hours prn Internal Medicine - PN: Subj Subjective Interval history: Noted CODE STATUS changed to comfort care yesterday, confirmed with patient today. Patient remains in significant pain despite starting fentanyl patch, received dilaudid 2 mg IV just prior to evaluation. Exam Narrative Exam Narrative: General: cooperative and tired appearing Orientation: alert, awake and oriented x3 Head: normal to inspection Neck: normal visual inspection Cardio: no JVD, regular rate, regular rhythm Chest palpation & inspection: normal inspection of the chest Resp Effort & Inspection: normal respiratory effort Abd: soft, non-distended Extremities: Warm well perfused, no edema Constitutional Vital Signs, click to edit/add: Last Vital Signs Temp 97.6 F 09/14/25 07:00 Pulse 96 H 09/14/25 08:09 Resp 17 09/14/25 07:00 BP 97/64 09/14/25 07:00 Pulse Ox 94 L 09/14/25 07:00 O2 Del Method Room Air 09/14/25 07:00
--- NOTE | 2025-09-14 10:25 | CM.NOTE ---
Rounds made with Dr. Maher, pt having uncontrolled pain. Pt with [facility], discussed with pt in Hospice. Pt in agreement, order put in for inpatient [facility]. SW updated.
--- NOTE | 2025-09-14 10:51 | SWNOTE1 ---
Pt is from [place] and has [facility] coming in. SW did receive a message from CM and request to send referral to [facility] In[facility] unit. SW to send referral. A nurse from [facility] was in pt's room. SW updated her that we are looking in to [facility] inpt unit. The nurse requested information on pt during her stay. SW to provide for continuation of care. The nurse from [facility] did let SW know that once her pain is controlled at [facility] IPU, they will discharge her and they will do what we were doing anyways. SW voiced understanding and will keep [facility] updated. Referral sent to [facility]. Referral included face sheet, ED note, H&P, provider notes, case management report, nursing notes, diagnostic imaging, med list, DNR order, and hospice order.
--- NOTE | 2025-09-14 11:12 | SWNOTE1 ---
RANCHO stopped in and provided [facility] nurse with paperwork from pt's current stay. Another [facility] Hospice rep was in room as well. Pt's daughter in room as well. SW let pt's daughter know that a referral has been sent to [facility] for them to review. RANCHO advised that SW is here to help with whatever discharge plans daughter would like to pursue. At this time daughter and [facility] conversing. SW to follow up.
[2025-09-14] MEDS: PROCHLORPERAZINE 10 MG/2 ML VIAL IV (11:25)
--- NOTE | 2025-09-14 12:20 | SWNOTE1 ---
RANCHO stopped back in and spoke with pt's daughter. After speaking with Renetta the nurse from [facility], the daughter has decided she would like pt to be here and to get her pain under control and then transition back to [facility]. Daughter would like to cancel [facility] referral. Renetta from [facility] stopped back in and RANCHO did ask her about GIP. Per Renetta, they have her GIP since she was made inpt on 09/12. RANCHO advised daughter that RANCHO will update [facility] and will continue to assist with discharge planning as needed. RANCHO called Renetta at [facility] and requested they fax over order for GIP so that RANCHO can provide to billing. Renetta will have it faxed.
[2025-09-14] MEDS: LORAZEPAM 2 MG/ML VIAL IV (12:33)
--- NOTE | 2025-09-14 13:04 | SWNOTE1 ---
Updates sent to Julian at [facility].
--- NOTE | 2025-09-14 14:19 | NUTR.NU ---
Recommend mouth care q 4 h
--- NOTE | 2025-09-14 14:28 | PM.DS1 ---
DS: Providers Provider Date of admission: 09/12/25 08:43 Primary care physician: CASA KELLY Admitting clinician: Jamie Valle Attending physician on admission: Jamie Valle Consults: 09/14/25 Consult to Hospice Routine Reason for consultation: stage 4 gastric CA Attending physician on discharge: SIVAKUMAR ARCHER Discharging clinician: SIVAKUMAR ARCHER DS: Diagnosis Discharge Diagnosis (1) Nausea & vomiting: (2) Gastric malignant neoplasm: (3) Dehydration: DS: Summary Hospital Course Hospital Course: Rosalee Tirado is a 80 y.o female with past medical Hx of recently diagnosed Stage IV gastric cancer (diagnosed on May 2025 not on chemo or radiation therapy, currently on hospice, was sent from SNF (while on hospice) on 09/11/25 due to intractable abdominal pain, left sided sided, crampy in nature, comes and goes, 07/10, a/w severe nausea and vomiting, worsened over the last 3-4 days could not keep anything down, including her oral liquid morphine. Admitted and started on IV hydration, IV morphine and zofran for supportive care. Had persistent abdominal pain suspected 2/2 gastric cancer. Was started on rocephin for potential underlying UTI contributing to sx, continued IV narcotics and lorazepam for comfort. Hospice was consulted for potential transfer to [facility] inpatient hospice unit however patient and family opted for continued hospice care with [facility]. She developed agonal breathing, became cyanotic and overnight on 09/14/25 at 2238. Time Spent with Patient Time attestation: Total time spent providing and/or coordinating discharge services: Exam Narrative Exam Narrative: [Prior to overnight events] General: cooperative and tired appearing, in pain Head: normal to inspection Neck: normal visual inspection Cardio: no JVD, regular rate, regular rhythm Chest palpation & inspection: normal inspection of the chest Resp Effort & Inspection: normal respiratory effort Abd: soft, non-distended, tender to palpation Extremities: Warm well perfused, no edema Constitutional Vital Signs, click to edit/add: Last Vital Signs Temp 97.6 F 09/14/25 07:00 Pulse 96 H 09/14/25 08:09 Resp 17 09/14/25 07:00 BP 97/64 09/14/25 07:00 Pulse Ox 92 L 09/14/25 14:04 O2 Del Method Room Air 09/14/25 07:00 DS: Data Data Completed and Pending Labs on day of discharge: Preliminary micro results at discharge 09/11/25 17:16 Urine Culture - Preliminary Urine,Clean Catch Pending - Specimen sent to [facility] Discharge Plan Discharge Disposition: Discharge Date/Time: 09/15/25 01:41 Date/Time: 09/14/25 22:16
[2025-09-14] MEDS: MORPHINE SULFATE 20 MG/ML ORAL CONCENTRATE BOTTLE 5 MG SL (19:42)
--- NOTE | 2025-09-14 22:38 | PC.NURSE ---
RN entered patient room and found patient to be agonal breathing and cyanotic. RN sat at bedside and held patient's hand. Pt then stopped breathing. RN attempted a manual blood pressure and was unable to obtain. Pupils were unresponsive. Pt had no pulse at this time. Apical pulse was verified with Arlene NELSON and Emeli NELSON. Time of was determined to be 2215. Physician, Nancy, notified of patient . The Daughter, Kathleen was then notified. Fixture Fabricator Repairer, Robin NELSON called [facility]. And [facility] was called and a message was left. Hospice mica machine operator stated they would call back. Post-mortem care was completed and IVs and medicated patches were removed. Patients wedding band x2 kept on ring finger and taped
--- NOTE | 2025-09-15 00:09 | PC.NURSE ---
[facility] hospice nurse in touch with family about wishes for patient. Per hospice patient care secretary [facility].
--- NOTE | 2025-09-15 01:40 | PC.NURSE ---
[facility] picked up patient at this time
--- NOTE | 2025-09-15 09:00 | SWNOTE1 ---
RANHCO emailed Shahbaz at [facility] to notify them of pt passing away. RANCHO also called Renetta at [facility] and notified.
== END 2025-09-15 01:41 | disposition expired | DRG 392 ==
LOC: ER 18:04 → MS 09-12 13:48
PROVIDERS: Admitting Provider Student in an Organized Health Care Education/Training Program; Emergency Provider Emergency Medicine; PCP Internal Medicine; Visit Provider Student in an Organized Health Care Education/Training Program
DX: R11.2 Nausea with vomiting, unspecified (principal); C16.9 Malignant neoplasm of stomach, unspecified; C78.7 Secondary malignant neoplasm of liver and intrahepatic bile duct; C78.6 Secondary malignant neoplasm of retroperitoneum and peritoneum; C78.80 Secondary malignant neoplasm of unspecified digestive organ; E86.0 Dehydration; E87.6 Hypokalemia; Z66 Do not resuscitate; Z79.899 Other long term (current) drug therapy
CPT/HCPCS: 36415; 74176; 80048; 80053; 80076; 81001; 82150; 83690; 83735; 84100; 85025; 87086; 87088; 87186; 93005; 96361; 96365; 96366; 96367; 96375; 96376; 99285; G0378; J0650; J0696; J0780; J1171; J1644; J2060; J2270; J2405; J2550; J2765; J3475; J3480; J3486